=== PATIENT | male | born 1965 | race Caucasian/White ===

== ENCOUNTER 2023-09-27 12:30 | Emergency (ER) | payer MEDICARE ==
[~2023-09-27] VITALS: Ht 167.6 cm; Wt 83.9 kg
[2023-09-27] MEDS ORDERED: Albuterol 2.5 MG/3 ML VIAL INH ONE (13:00)
[2023-09-27 13:02] LABS: BASOPHILS ABSOLUTE AUTO 0.08 K/mm3 (0.00-0.23); BASOPHILS PERCENT AUTO 1 % (0-2); EOSINOPHILS ABSOLUTE AUTO 0.41 K/mm3 (0.00-0.68); EOSINOPHILS PERCENT AUTO 4 % (0-6); Hematocrit 39.1 % (37.0-53.0); Hemoglobin 13.1 g/dL (13.5-17.5); IMMATURE GRAN ABSOLUTE AUTO 0.03 K/mm3 (0.00-0.10); IMMATURE GRAN PERCENT AUTO 0 % (0-1); LYMPHOCYTES ABSOLUTE AUTO 2.65 K/mm3 (0.84-5.20); LYMPHOCYTES PERCENT AUTO 25 % (21-46); MONOCYTES ABSOLUTE AUTO 0.66 K/mm3 (0.16-1.47); MONOCYTES PERCENT AUTO 6 % (4-13); Mean Corpuscular HGB 29.1 pg (26.0-34.0); Mean Corpuscular HGB Conc 33.5 g/dL (31.5-36.5); Mean Corpuscular Volume 87 fL (80-100); Mean Platelet Volume 9.2 fL (9.1-12.4); NEUTROPHILS ABSOLUTE AUTO 6.66 K/mm3 (1.96-9.15); NEUTROPHILS PERCENT AUTO 63 % (41-73); Platelet Count 317 K/mm3 (150-400); RDW Coefficient Variation 13.6 % (11.7-14.2); RDW Standard Deviation 43.5 fL (35.1-46.3); White Blood Cell Count 10.49 K/mm3 (4.00-11.30)
[2023-09-27 13:24] LABS: Albumin, Blood 3.7 g/dL (3.4-5.0); Bilirubin, Total 0.9 mg/dL (0.1-1.0); Bun/Creatinine Ratio 12.4 (12.0-20.0); Calcium, Blood 8.9 mg/dL (8.5-10.1); Creatinine, Blood 1.21 mg/dL (0.60-1.20); Globulin, Blood 3.8 g/dL (2.2-4.0); Potassium, Blood 4.2 mmol/L (3.5-5.5); Total Protein, Blood 7.5 g/dL (6.4-8.2)
[2023-09-27] MEDS ORDERED: Furosemide 10 MG / ML 2ML Vial IV ONE (15:10)
[2023-09-27 15:30] VITALS: BP 148/119
[2023-09-27 15:43] LABS: Source, Urine Clean Catch
[2023-09-27 15:47] LABS: Appearance, Urine Clear (Clear); Bilirubin, Urine Neg (Neg); Blood, Urine Neg (Neg); Color, Urine Yellow (P-Yellow); Glucose Qualitative, Urine Neg (Neg); Ketones, Urine Neg (Neg); Leukocyte Esterase, Urine Neg (Neg); Nitrite, Urine Neg (Neg); Protein, Urine Neg (Neg); Urobilinogen, Urine NORM (Normal)
[2023-09-27 16:02] LABS: U Amphetamine Screen DETECTED
[2023-09-27 16:03] LABS: U Barbituate Screen Not Detected; U Benzodiazapine Screen Not Detected; U Buprenorphine Screen Not Detected; U Cannabinoids Screen Not Detected; U Cocaine Screen Not Detected; U Methadone Screen Not Detected; U Methamphetamine Screen DETECTED; U Opiates Screen Not Detected; U Oxycodone Screen Not Detected; U Phencyclidine Screen Not Detected
== END 2023-09-27 16:30 | disposition left against medical advice (07) ==
LOC: ER 12:30
PROVIDERS: Emergency Medicine
DX: I11.0 Hypertensive heart disease with heart failure (principal); I50.9 Heart failure, unspecified; Z53.29 Procedure and treatment not carried out because of patient's decision for other reasons; Z87.891 Personal history of nicotine dependence
CPT/HCPCS: 71045; 80053; 81003; 83880; 84484; 85025; 93005; 93010; 94640; 94664; 96374; 99285-25; J1940

== ENCOUNTER 2024-12-18 03:02 | Inpatient (IN) | payer MEDICARE ==
[~2024-12-18] VITALS: Ht 165.1 cm; Wt 79.4 kg
[2024-12-18] VITALS (23 sets, daily range): BP systolic 72–156; BP diastolic 52–138
[~2024-12-18 03:02] MED LIST: ALDACTONE25 MG PO; ASPI81CH PO; ATOR40TA PO; CLOPIDOGREL75 MG PO; DULERA 100 MCG/13 GM INH; FURO40 PO; LOSA25 PO; MELATONIN10 M1 PO; METO25 PO; MIRALAX17 GM PO
[2024-12-18] MEDS ORDERED: Albuterol 2.5 MG/3 ML VIAL ONE (03:08)
[2024-12-18] MEDS ORDERED: MethylPREDNISolone Sod Succ 125 MG Vial ONE (03:10)
[2024-12-18] MEDS ORDERED: Magnesium Sulf 2 GM/Water 50ML 50 ML IV ONE (03:15)
[2024-12-18] MEDS ORDERED: Albuterol 2.5 MG/3 ML VIAL INH SCH (03:15)
[2024-12-18] MEDS ORDERED: LORazepam 2 MG/ML 1ML Injection IV ONE ×2 (03:20→04:00)
[2024-12-18 03:25] LABS: BASOPHILS ABSOLUTE AUTO 0.13 K/mm3 (0.00-0.23); BASOPHILS PERCENT AUTO 1 % (0-2); EOSINOPHILS PERCENT AUTO 3 % (0-6); Hematocrit 48.1 % (37.0-53.0); Hemoglobin 16.1 g/dL (13.5-17.5); IMMATURE GRAN ABSOLUTE AUTO 0.07 K/mm3 (0.00-0.10); IMMATURE GRAN PERCENT AUTO 0 % (0-1); LYMPHOCYTES ABSOLUTE AUTO 4.23 K/mm3 (0.84-5.20); LYMPHOCYTES PERCENT AUTO 24 % (21-46); MONOCYTES PERCENT AUTO 7 % (4-13); Mean Corpuscular HGB 29.5 pg (26.0-34.0); Mean Corpuscular HGB Conc 33.5 g/dL (31.5-36.5); Mean Corpuscular Volume 88 fL (80-100); Mean Platelet Volume 8.9 fL (9.1-12.4); NEUTROPHILS ABSOLUTE AUTO 11.64 K/mm3 (1.96-9.15); NEUTROPHILS PERCENT AUTO 65 % (41-73); Platelet Count 424 K/mm3 (150-400); RDW Coefficient Variation 13.1 % (11.7-14.2); RDW Standard Deviation 42.2 fL (35.1-46.3); Red Blood Cell Count 5.46 M/mm3 (4.30-5.90); White Blood Cell Count 17.87 K/mm3 (4.00-11.30)
[2024-12-18 03:26] LABS: Base Excess Venous -3.5 mmol/L; Bicarbonate Venous 21.2 mmol/L (24.0-30.0); PCO2 Venous 46.4 mmHg (38-42)
[2024-12-18 03:41] LABS: D-Dimer, Quantitative 1.36 mg/L FEU (0.00-0.52); International Normalized Ratio 1.02; Prothrombin Time Results 10.9 Sec (9.7-11.5)
[2024-12-18 04:00] LABS: Albumin, Blood 3.9 g/dL (3.4-5.0); Albumin/Globulin Ratio 0.9 (0.8-1.8); Bilirubin, Total 0.6 mg/dL (0.1-1.0); Bun/Creatinine Ratio 14.5 (12.0-20.0); Calcium, Blood 8.8 mg/dL (8.5-10.1); Creatinine, Blood 1.59 mg/dL (0.60-1.20); Globulin, Blood 4.3 g/dL (2.2-4.0); Magnesium, Blood 2.1 mg/dL (1.6-2.4); Phosphorus, Blood 5.1 mg/dL (2.5-4.9); Thyroid Stimulating Hormone 1.67 uIU/mL (0.360-4.800); Total Protein, Blood 8.2 g/dL (6.4-8.2)
[2024-12-18] MEDS ORDERED: dexmedeTOMIDine 100 ML IV SCH (04:00)
[2024-12-18] MEDS ORDERED: Morphine Sulfate 10 MG/ML 1MLSYR IV ONE (04:15)
[2024-12-18] MEDS ORDERED: Ketamine HCl 100 MG / ML 5ML Vial IV ONE (04:20)
[2024-12-18 04:50] LABS: Influenza A, PCR NEGATIVE (NEGATIVE); Influenza B, PCR NEGATIVE (NEGATIVE); Resp Syncytial Virus, PCR NEGATIVE (NEGATIVE); SARS-Cov-2 (COVID-19) PCR, MMC NEGATIVE (NEGATIVE)
[2024-12-18] MEDS ORDERED: Midazolam HCL 50 MG in NS 40 ML IV PRN (05:20)
[2024-12-18] MEDS ORDERED: Midazolam HCl 1MG / ML 2ML Vial IV SCH (05:20)
[2024-12-18] MEDS ORDERED: Acetaminophen 325 MG TABLET PO PRN (05:20)
[2024-12-18] MEDS ORDERED: Acetaminophen 650 MG Supp PR PRN (05:20)
[2024-12-18] MEDS ORDERED: Dose Adjust by Pharmacy XX STA ×2 (05:28→17:02)
[2024-12-18 05:30] LABS: U Amphetamine Screen DETECTED; U Barbituate Screen Not Detected; U Benzodiazapine Screen Not Detected; U Buprenorphine Screen Not Detected; U Cannabinoids Screen Not Detected; U Cocaine Screen Not Detected; U Methadone Screen Not Detected; U Methamphetamine Screen DETECTED; U Opiates Screen Not Detected; U Oxycodone Screen Not Detected; U Phencyclidine Screen Not Detected
[2024-12-18] MEDS ORDERED: Heparin Sodium 5000 Units/ML 1ML MDV IV ONE (05:30)
[2024-12-18] MEDS ORDERED: Heparin Sodium,Porcine/0.5 NS 500 ML IV SCH (05:35)
[2024-12-18] MEDS ORDERED: Ipratropium/Albuterol SulF 2.5-0.5MG/3 ML Amp ONE (05:37)
[2024-12-18] MEDS ORDERED: propofoL 100 ML IV ONE (05:52)
[2024-12-18] MEDS ORDERED: Furosemide 10 MG / ML 2ML Vial IV SCH (06:00)
[2024-12-18] MEDS ORDERED: Pantoprazole Sodium 40 MG Injection IV SCH (06:00)
[2024-12-18] MEDS ORDERED: propofoL 100 ML IV SCH (06:10)
[2024-12-18 06:24] LABS: Base Excess Venous -5.7 mmol/L; Bicarbonate Venous 18.6 mmol/L (24.0-30.0); PCO2 Venous 57.8 mmHg (38-42)
[2024-12-18] MEDS ORDERED: Ticagrelor 90 MG TABLET PT ONE (06:40)
[2024-12-18] MEDS ORDERED: Aspirin 325 MG Tab PT ONE (06:40)
[2024-12-18] MEDS ORDERED: NiCARdipine HCL 1,000 MCG/5 ML SYR ONE (06:44)
[2024-12-18] MEDS ORDERED: Phenylephrine HCl 100 MCG/ML-NS 10MLSYR (1MG/10ML) ONE (06:46)
[2024-12-18] MEDS ORDERED: NS 1,000 ML IV ONE ×2 (06:46→10:24)
--- NOTE | 2024-12-18 06:46 | NUR ---
ARRIVAL TO ICU: PT ARRIVED TO ICU BED 6 VIA GURNEY FROM ER. PT INTUBATED UPON ARRIVAL WITH PRECEDEX INFUSING. PT VISIBLY AGGITATED, SWEATING PROFUSELY, TEMP 101.4. PRECEDEX STOPPED PER DR. ZHONG, PROPOFOL INITIATED AT 30 MCG/KG/MIN FOR VENT COMPLIANCE AND COMFORT. PT IN SINUS TACH, EKG OBTAINED AND GIVEN TO DR. ZHONG. SBP 120-140'S. HR 100-120. VENT SETTINGS AC/PC PEEP 12/ FIO2 100%. SPO2 99-100%. LUNGS DIMINISHED T/O. PT MOTTLED FROM UPPER BACK TO LOWER BACK, BILATERAL KNEES AND BILATERAL FEET. TEMP ROBLERO PATENT AND DRAINING TO GRAVITY. OG TUBE PATENT AND DRAINING TO LIS. ET TUBE 7.5, 25 AT LIP. PT AWAITING TRANSFER TO PIN BALL MACHINE MECHANIC. VERSED STARTED AT 2 MG/HR. HEPARIN AT 15 UNITS/KG/HR. PIVS TO RH AND LAC BOTH PATENT AND INFUSING. BED LOCKED.
[2024-12-18] MEDS ORDERED: Atropine Sulfate 0.1 MG/ML 10ML SYR ONE (06:47)
[2024-12-18] MEDS ORDERED: Acetaminophen 500 MG Tab PT ONE (06:50)
[2024-12-18] MEDS ORDERED: Heparin Sodium 1000 Units/ML 10ML MDV ONE ×4 (06:55→10:24)
[2024-12-18] MEDS ORDERED: Midazolam HCl 1MG / ML 2ML Vial ONE ×2 (07:25→08:47)
[2024-12-18] MEDS ORDERED: FentaNYL Citrate 50 MCG/ML 2 ML Injection ONE ×2 (07:38→08:47)
[2024-12-18 07:54] LABS: PCO2 Arterial 41.6 mmHg (35-45); PO2 Arterial 176 mmHg (80-100); pH Blood Arterial 7.33 (7.35-7.45)
[2024-12-18] MEDS ORDERED: propofoL 0 ML IV ONE (08:09)
[2024-12-18] MEDS ORDERED: NS 500 ML IV ONE ×4 (08:35→09:46)
[2024-12-18] MEDS ORDERED: Rocuronium Bromide 10 MG/ML 5ML Injection IV ONE (08:45)
[2024-12-18] MEDS ORDERED: Aspirin 81 MG Chew PO SCH (09:00)
[2024-12-18] MEDS ORDERED: Docusate Sodium 100 MG Cap PO SCH (09:00)
[2024-12-18] MEDS ORDERED: Atorvastatin 40 MG Tab PO SCH ×2 (09:00→21:00)
[2024-12-18] MEDS ORDERED: NS 500 ML IV SCH (09:40)
[2024-12-18] MEDS ORDERED: Dextrose 5% 500 ML IV SCH (09:45)
[2024-12-18] MEDS ORDERED: propofoL 50 ML IV ONE (09:46)
[2024-12-18] MEDS ORDERED: fentaNYL citrate 1,000 MCG in NS 80 ML IV SCH (10:15)
[2024-12-18] MEDS ORDERED: FentaNYL Citrate 50 MCG/ML 2 ML Injection IV PRN ×2 (10:20→11:40)
[2024-12-18] MEDS ORDERED: Verapamil HCL 2.5 MG/ML 2ML Injection ONE (10:23)
[2024-12-18] MEDS ORDERED: NS 250 ML IV ONE (10:24)
[2024-12-18] MEDS ORDERED: Nitroglycerin 2 MG/20 ML BTL ONE (10:24)
[2024-12-18] MEDS ORDERED: Albuterol 2.5 MG/3 ML VIAL INH PRN (10:25)
[2024-12-18] MEDS ORDERED: Empagliflozin 10 MG TAB PO SCH (10:30)
[2024-12-18] MEDS ORDERED: Cetylpyridinium Chloride 1 EA MISC MT SCH (11:40)
[2024-12-18] MEDS ORDERED: Hydrogen Peroxide 1.5 % Solution MT SCH (12:00)
[2024-12-18 12:28] LABS: LDL/HDL RATIO 2.4; Very Low Density Lipoprot Chol 18 mg/dL (6-32)
[2024-12-18 13:07] LABS: CHOL/HDL RATIO 3.8; Cholesterol 194 mg/dL (50-200); HDL Cholesterol 51 mg/dL (>39); Low Density Lipoprotein Chol 125 mg/dL (0-110); Triglycerides 92 mg/dL (30-160)
[2024-12-18 13:34] LABS: PCO2 Arterial 37.8 mmHg (35-45); PO2 Arterial 103 mmHg (80-100); pH Blood Arterial 7.34 (7.35-7.45)
--- NOTE | 2024-12-18 14:28 | NUR ---
PT ARRIVED LAST NIGHT VIA EMS WITH NO CONTACT INFORMATION. HE WAS INTUBATED AND SEDATED LAST NIGHT. NURSE INTERN ABLE TO LOCATE SEVERAL PHONE NUMBERS, AND THIS RN WAS ABLE TO ESTABLISH WITH FAMILY THAT THE PATIENT'S MOM TYLER WOULD BE HIS PRIMARY DECISION-MAKER IF NEED BE. PT DOES HAVE 2 CHILDREN, A SON AND A DAUGHTER. SON ARNULFO STATES HE WOULD NOT BE ABLE TO MAKE DECISIONS AND DEFERRED TO HIS GRANDMA TYLER. ACCORDING TO FAMILY, PT IS ESTRANGED FROM HIS DAUGHTER. TYLER'S # [phone]
--- NOTE | 2024-12-18 18:05 | NUR ---
SHIFT SUMMARY PT INTUBATED AND SEDATED WITH FENTANYL GTT @ 25MCG/HR AND PROPOFOL @ 45MCG/KG/HR. RASS OF -4. HEPARIN INFUSING @ PRESCRIBED RATE. VENT SETTINGS AC/VC-22/400/50%/12 c SATS >95%. IABP TO R FEMORAL SITE, SMALL AMNT OF OOZING BLOOD FROM SITE, NO HEMATOMA TO SURROUNDING TISSUE. SWAN VIA R FEMORAL SITE, NOT MEASURING WEDGE PRESSURES PER CARDIOLOGY. Q4HR HEMODYNAMIC CALCULATIONS. PT NO LONGER ON LEVOPHED, OFF @ 1555, IA MAP >65. INITIALLY UNABLE TO DOPPLER PEDAL PULSES, FEET COOL TO TOUCH, CAP REFILL >3 SECONDS. PULSES HAVE IMPROVED TO LE THIS AFTERNOON, DOPPLER PULSES PRESENT TO BLE. OGT TO LIS c BROWN LIQUID OUT. TEMP PROBE ROBLERO CATH DRAINING LIGHT YELLOW URINE, UO >30CC/HR.
[2024-12-18 19:22] LABS: Bun/Creatinine Ratio 13.9 (12.0-20.0); Calcium, Blood 8.6 mg/dL (8.5-10.1); Creatinine, Blood 2.44 mg/dL (0.60-1.20)
--- NOTE | 2024-12-18 20:21 | NUR ---
ASSUMPTION OF CARE: ASSUMED CARE OF PT AT 1900 FROM GILBERT ARRIETA. PT INTUBATED AND SEDATED ON PROPOFOL AT 30 MCG/KG/MIN WITH FENTANYL AT 25 MCG/HR AN ADJUNCT. RASS -5 PER DAYSHIFT REPORT. PT ON BALLOON PUMP AND SWAN TO RIGHT FEMORAL. UNABLE TO COMPLETE FULL NEURO ASSESSMENT R/T SEDATION. HEPARIN GTT AT 10 UNITS/KG/HR. PUPILS EQUAL AND REACTIVE TO LIGHT. PULSES PALPABLE IN BILATERAL RADIALS WITH DOPPLER PULSES PRESENT IN BILATERAL PEDALS. VENT SETTINGS AC/VC + 22/400/12/50%, SPO2 96-97%. LUNGS CLEAR/DIM. WELLFIELD TECHNICIAN IN PLACE, SR WITH HR 80'S. MAP >65 ACCORDING TO ARTLINE. OGT PATENT. TEMP ROBLERO PATENT AND DRAINING TO GRAVITY, YELLOW URINE. BT PRESENT. PT AFEBRILE. BED LOW AND LOCKED.
[2024-12-18 20:50] LABS: Source, Urine Foley catheter
[2024-12-18 20:59] LABS: Bilirubin, Urine Neg (Neg); Blood, Urine 2+ (Neg); Glucose Qualitative, Urine Neg (Neg); Ketones, Urine Neg (Neg); Leukocyte Esterase, Urine Neg (Neg); Nitrite, Urine Neg (Neg); Protein, Urine 3+ (Neg); Specific Gravity, Urine 1.025 (1.003-1.022); Urobilinogen, Urine NORM (Normal)
[2024-12-18] MEDS ORDERED: Ticagrelor 90 MG TABLET PO SCH (21:00)
[2024-12-18 21:08] LABS: Appearance, Urine Clear (Clear); Color, Urine Yellow (P-Yellow)
[2024-12-18 21:09] LABS: Amorphous Light (0-Heavy); Bacteria Rare /hpf; Calcium Oxalate Crystals Few /hpf; Hyaline Casts 0-2 /lpf (0-2); Mucus Light (0-Heavy); Squamous Epithelial Cells Rare /hpf (Few); White Blood Cells, Urine 0-2 /hpf (0-5)
[2024-12-18 21:10] LABS: Renal Epithelial Rare /hpf (0-Rare)
[2024-12-19] VITALS (38 sets, daily range): BP systolic 100–177; BP diastolic 65–109
[2024-12-19] MEDS ORDERED: Dose Adjust by Pharmacy XX STA ×2 (00:57→07:40)
[2024-12-19 04:32] LABS: PCO2 Arterial 39.9 mmHg (35-45); PO2 Arterial 88.7 mmHg (80-100); pH Blood Arterial 7.39 (7.35-7.45)
[2024-12-19 04:35] LABS: BASOPHILS ABSOLUTE AUTO 0.04 K/mm3 (0.00-0.23); BASOPHILS PERCENT AUTO 0 % (0-2); EOSINOPHILS ABSOLUTE AUTO 0.01 K/mm3 (0.00-0.68); EOSINOPHILS PERCENT AUTO 0 % (0-6); Hematocrit 42.9 % (37.0-53.0); Hemoglobin 14.4 g/dL (13.5-17.5); IMMATURE GRAN ABSOLUTE AUTO 0.12 K/mm3 (0.00-0.10); IMMATURE GRAN PERCENT AUTO 1 % (0-1); LYMPHOCYTES ABSOLUTE AUTO 2.45 K/mm3 (0.84-5.20); LYMPHOCYTES PERCENT AUTO 11 % (21-46); MONOCYTES ABSOLUTE AUTO 1.63 K/mm3 (0.16-1.47); MONOCYTES PERCENT AUTO 7 % (4-13); Mean Corpuscular HGB 29.8 pg (26.0-34.0); Mean Corpuscular HGB Conc 33.6 g/dL (31.5-36.5); Mean Corpuscular Volume 89 fL (80-100); Mean Platelet Volume 9.6 fL (9.1-12.4); NEUTROPHILS ABSOLUTE AUTO 19.17 K/mm3 (1.96-9.15); NEUTROPHILS PERCENT AUTO 82 % (41-73); Platelet Count 397 K/mm3 (150-400); RDW Coefficient Variation 13.2 % (11.7-14.2); RDW Standard Deviation 43.3 fL (35.1-46.3); Red Blood Cell Count 4.84 M/mm3 (4.30-5.90); White Blood Cell Count 23.42 K/mm3 (4.00-11.30)
[2024-12-19 04:59] LABS: Albumin, Blood 3.2 g/dL (3.4-5.0); Albumin/Globulin Ratio 0.9 (0.8-1.8); Bilirubin, Total 0.6 mg/dL (0.1-1.0); Bun/Creatinine Ratio 16.9 (12.0-20.0); Calcium, Blood 8.6 mg/dL (8.5-10.1); Creatinine, Blood 2.55 mg/dL (0.60-1.20); Globulin, Blood 3.7 g/dL (2.2-4.0); Magnesium, Blood 2.6 mg/dL (1.6-2.4); Potassium, Blood 4.9 mmol/L (3.5-5.5); Total Protein, Blood 6.9 g/dL (6.4-8.2)
--- NOTE | 2024-12-19 06:13 | NUR ---
SHIFT SUMMARY: NO ACUTE CHANGES OVERNIGHT. PT CONTINUES TO REMAIN INTUBATED AND SEDATED. PROPOFOL DECREASED TO 35 MCG/KG/MIN THIS SHIFT WITH FENTANYL AN ADJUNCT AT 25 MCG/HR. PT HAS MINIMAL PAIN RESPONSE AT TIMES, GRIMACES OCCASIONALLY WITH SUCTIONING. PUPILS EQUAL AND REACTIVE. PT DOUBLE STACKING AT TIMES, PRN FENTANYL GIVEN TWICE THIS SHIFT FOR COMFORT. UNABLE TO DO FULL NEURO ASSESSMENT R/T SEDATION. PT CONTINUES ON BALLOON PUMP WITH PA CATHETER IN RIGHT GROIN. RIGHT FOOT COOL TO TOUCH BUT IMPROVING SINCE START OF SHIFT. PULSES HEARD WITH DOPPLER ON BILATERAL FEET. LEVOPHED BETWEEN 1-2 MCG/MIN FOR A FEW HOURS THIS SHIFT, SEE FLOWSHEET. CURRENTLY ON SB FOR MAP >65. HR 80'S IN SR WITH PVC'S. VENT SETTINGS UNCHANGED THIS SHIFT. SPO2 MAINTAINING >94%. LUNGS REMAIN CLEAR/DIM. PA CATH SITE TO RIGHT GROIN HAS MINIMAL OOZING NOTED FROM DAYSHIFT, NO NEW BLOOD THIS SHIFT. HEPARIN INCREASED TO 12 UNITS/KG/HR PER PHARMACY. PIV TO RH AND LAC CONTINUE TO BE PATENT. TEMP ROBLERO DRAINING TO GRAVITY YELLOW URINE. PT AFEBRILE THIS SHIFT. EKG OBTAINED AND IN CHART THIS AM. OGT SET TO LIS. BED LOW AND LOCKED.
--- NOTE | 2024-12-19 07:00 | NUR ---
ASSUMPTION OF CARE BEDSIDE REPORT RECEIVED FROM MARITZA ARRIETA. PT RECEIVING HEPARIN 12UNITS/KG/HR, PROPOFOL 35MCG/KG/MIN AND FENTANYL 25MCG/HR. PT IS INTUBATED WITH VENT SETTINGS AC/VC 22/400/12/50%. RASS -4. IABP AND SWAN TO R FEM. DRESSING HAS SOME DRIED OOZING THAT PREVIOUS RN STS HAS BEEN UNCHANGED THROUGHOUT THE SHIFT. HEMODYNAMICS COMPLETED TOGETHER DURING SHIFT REPORT. IAP ON 1:1 WITH MAP >65. SINUS ON MONITOR WITH OCCASIONAL PVCS WITH RATE IN 80S. OGT TO LIS. ABDOMEN FIRM, BOWEL TONES ACTIVE. TEMP ROBLERO PATENT AND DRAINING TO GRAVITY.
--- NOTE | 2024-12-19 08:00 | NUR ---
UPDATE CARDIOLOGY ROUNDED AND CHANGED IABP TO 1:2. PT TOLERATING. MAP >65. TENTATIVE PLAN FOR IABP REMOVAL TODAY. HEPARIN TURNED OFF, PHARMACY NOTIFIED.
[2024-12-19] MEDS ORDERED: Aspirin 81 MG Chew PO SCH (09:00)
[2024-12-19] MEDS ORDERED: Furosemide 10 MG/ML 4ML Vial IV SCH (09:00)
[2024-12-19] MEDS ORDERED: Docusate Sodium Liquid 100 MG UDC PT PRN (11:25)
[2024-12-19] MEDS ORDERED: Bisacodyl 10 MG Supp PR PRN (11:25)
[2024-12-19] MEDS ORDERED: Magnesium Hydroxide Conc 10 ML UDC PT PRN (11:25)
--- NOTE | 2024-12-19 13:40 | NUR ---
UPDATE PT TRANSITIONED TO 1:3 AROUND NOON. HR REMAINS IN 80S. BP MORE LABILE WITH MAP VARYING BETWEEN MID 50S-80S. CARDIOLOGY NOTIFIED AND PLAN TO REMOVE IABP AND SWAN THIS AFTERNOON. ORDER RECEIVED TO START LEVOPHED PERIPHERALLY IF NIBP MAP MAINTAINS <60. PT'S COUSIN MARITZA AT BEDSIDE AND REPORTS PT'S MOTHER JUST LANDED IN [place] AND IS IN TRANSIT TO HOSPITAL.
--- NOTE | 2024-12-19 15:18 | NUR ---
UPDATE/REMOVAL OF IABP AND SWAN FISH CLEANER STAFF REMOVED IABP AND SWAN, PERFORMED MANUAL PRESSURE HELD, SITE CARE AND DRESSING. NO ACTIVE BLEEDING, SURROUNDING TISSUE SOFT/NONTENDER. PT TOLERATED WELL. HR 90-100S. MAP >65. DOPPLER PEDAL PULSES PRESENT. DR BOUCHER ROUNDED AFTER REMOVAL. PLAN TO KEEP PRESSURE DRESSING IN PLACE UNTIL TOMORROW.
--- NOTE | 2024-12-19 17:50 | NUR ---
SHIFT SUMMARY PT IS RECEIVING PROPOFOL 45MCG/KG/MIN AND FENTANYL 25MCG/HR. HE REMAINS INTUBATED WITH VENT SETTINGS AC/VC+ 22/400/10/50%. RASS -4. IABP AND SWAN REMOVED AROUND 1400 BY POLICE OFFICER STAFF. PRESSURE DRESSING REMAINS C/D/I. SURROUNDING TISSUE SOFT. RLE IS COOL TO TOUCH WITH DISCOLORED TOES. DOPPLER PULSES PRESSENT ON BLE. STRONG RADIAL PULSES. SINUS WITH PVCS ON MONITOR WITH RATE IN 90S-100S. MAP >65. PT POSITIONED REVERSE TRENDELENBERG WITH R LEG STRAIGHT. OGT TO LIS. TUBE FEEDING HAS NOT BEEN STARTED TO DUE SUPINE POSITIONING POST IABP REMOVAL. TEMP ROBLERO PATENT AND DRAINING TO GRAVITY. NEPHROLOGY CONSULTED AND ROUNDED THIS EVENING. PT SEEN BY DENTAL HYGEINIST AND HAS PURULENT ORAL DISCHARGE. PT'S CORE TEMP INCREASED WITH TMAX 100.4. CRITICAL CARE NURSE SPECIALIST NOTIFIED AND ORDER RECEIVED TO BEGIN ANTIBIOTICS. HEPARIN GTT OFF AT 0800 AND PLAN TO START LOVENOX IN AM. NO ORDER FOR SCDS. MULTIPLE FAMILY MEMBERS AT BEDSIDE AND UPDATED.
[2024-12-19] MEDS ORDERED: Amoxicillin 250 MG/5 ML UDC 5ML BTL PT SCH (19:00)
[2024-12-20] VITALS (72 sets, daily range): BP systolic 62–136; BP diastolic 45–101
[2024-12-20 03:25] LABS: BASOPHILS ABSOLUTE AUTO 0.06 K/mm3 (0.00-0.23); BASOPHILS PERCENT AUTO 0 % (0-2); EOSINOPHILS ABSOLUTE AUTO 0.02 K/mm3 (0.00-0.68); EOSINOPHILS PERCENT AUTO 0 % (0-6); Hematocrit 42.6 % (37.0-53.0); Hemoglobin 13.8 g/dL (13.5-17.5); IMMATURE GRAN ABSOLUTE AUTO 0.06 K/mm3 (0.00-0.10); IMMATURE GRAN PERCENT AUTO 0 % (0-1); LYMPHOCYTES ABSOLUTE AUTO 2.56 K/mm3 (0.84-5.20); LYMPHOCYTES PERCENT AUTO 14 % (21-46); MONOCYTES ABSOLUTE AUTO 2.82 K/mm3 (0.16-1.47); MONOCYTES PERCENT AUTO 15 % (4-13); Mean Corpuscular HGB 29.1 pg (26.0-34.0); Mean Corpuscular HGB Conc 32.4 g/dL (31.5-36.5); Mean Corpuscular Volume 90 fL (80-100); Mean Platelet Volume 9.5 fL (9.1-12.4); NEUTROPHILS ABSOLUTE AUTO 13.06 K/mm3 (1.96-9.15); NEUTROPHILS PERCENT AUTO 70 % (41-73); Platelet Count 298 K/mm3 (150-400); RDW Coefficient Variation 13.4 % (11.7-14.2); RDW Standard Deviation 44.6 fL (35.1-46.3); Red Blood Cell Count 4.74 M/mm3 (4.30-5.90); White Blood Cell Count 18.58 K/mm3 (4.00-11.30)
[2024-12-20 03:58] LABS: Bun/Creatinine Ratio 22.3 (12.0-20.0); Calcium, Blood 8.6 mg/dL (8.5-10.1); Creatinine, Blood 2.29 mg/dL (0.60-1.20); Magnesium, Blood 2.6 mg/dL (1.6-2.4); Phosphorus, Blood 4.6 mg/dL (2.5-4.9); Potassium, Blood 3.9 mmol/L (3.5-5.5)
[2024-12-20] MEDS ORDERED: CALCIUM GLUC IN NACL, ISO-OSM 50 ML IV ONE (05:10)
--- NOTE | 2024-12-20 05:36 | NUR ---
SHIFT SUMMARY PT INTUBATED/SEDATED. NOT FOLLOWING COMMANDS, RESPONSIVE TO STIMULI. PROPOFOL INCREASED TO 55 MCG/KG R/T NOT TOLERATING VENT, REACHING FOR TUBE, PULLING ON RESTRAINTS. PT APPEARS COMFORTABLE NOW. SOME FENTANYL 50MCG PUSHES GIVEN THIS SHIFT ALSO. ON VENT ACVC 22/400/10/50%, PT HAS HAD LOTS OF SECRETIONS REQUIRING IN-LINE SUCTION WELL ORAL SUCTION. SATS > 95%. ON METAL STAMPER, HR 90-100'S SR. ROBLERO DRAINING TO GRAVITY. IABP SITE DRESSING C/D/I, NO HEMATOMA NOTED, SOFT ON PALPATION. CHG BATH GIVEN. NO OTHER ACUTE EVENTS THIS SHIFT.
--- NOTE | 2024-12-20 07:00 | NUR ---
ASSUMPTION OF CARE BEDSIDE REPORT RECEIVED FROM QI ARRIETA. PT IS RECEIVING PROPOFOL 45MCG/KG/MIN AND FENTANYL 25MCG/HR. HE REMAINS INTUBATED WITH VENT SETTINGS AC/VC+ 22/400/10/50%. PT BECOMES AGITATED WITH CARE, RASS -4 AT REST. SINUS WITH PVCS ON MONITOR. BP STABLE WITH MAP >65. R FEM DRESSING C/D/I. SURROUNDING TISSUE SOFT WITHOUT DISCOLORATION. RLE COLORING IMPROVED SINCE YESTERDAY. LLE HAS SOME MOTTLING AND COOL TO TOUCH. DOPPLER PULSES PRESENT BILATERALLY. CORE TEMP 100.8, COOL CLOTH ON FOREHEAD AND FAN IN PLACE. ROBLERO PATENT AND DRAINING TO GRAVITY. FAMILY AT BEDSIDE AND UPDATED.
[2024-12-20] MEDS ORDERED: Enoxaparin 40 MG/0.4 ML SYR SC SCH (09:00)
[2024-12-20] MEDS ORDERED: LORazepam 2 MG/ML 1ML Injection IV PRN (09:40)
[2024-12-20] MEDS ORDERED: dexmedeTOMIDine 100 ML IV SCH (09:45)
[2024-12-20] MEDS ORDERED: Ipratropium/Albuterol SulF 2.5-0.5MG/3 ML Amp INH SCH (10:55)
--- NOTE | 2024-12-20 11:46 | NUR ---
LATE ENTRY BALLOON PUMP REMOVAL 12/19/2024 1435 BALLOON PUMP AND 8 FR ARTERIAL SHEATH REMOVED BOTH INTACT; MANUAL PRESSURE HELD X 30 MIN, NO SWELLING/HEMATOMA POST REMOVAL; POSITIVE DOPPLER SIGNAL R DP POST REMOVAL. TEGADERM AND PRESSURE DRESSING PLACED PER DR BOUCHER. SWAN AND 8 FR VENOUS SHEATH REMOVED, BOTH INTACT; MANUAL PRESSURE HELD X 10 MIN, NO SWELLING/HEMATOMA POST REMOVAL. TEGADERM DRSG PLACED.
[2024-12-20] MEDS ORDERED: Calcium Chloride 10% 1,000 MG in NS 50 ML IV ONE (14:40)
--- NOTE | 2024-12-20 15:40 | NUR ---
UPDATE ATTEMPTED SEDATION VACATION THIS AM. PT BEGINS COUGHING AND PULLING AGAINST RESTRAINTS. PT ATTEMPTS TO OPEN EYES TO VERBAL STIMULI BUT UNABLE TO FULLY OPEN AND MAKE EYE CONTACT. PT DOES NOT FOLLOW ANY COMMANDS OR RESPOND TO VERBAL REASSURANCE. TRANSITIONED TO SPONT AND TITRATED TO 7/5/50%. PRECEDEX ADDED AND PRN ATIVAN. PT CONTINUES TO COUGH, HAVE COPIOUS ORAL AND ETT SECRETIONS, AND BEGINS DESATURATING. PT TRANSITIONED BACK TO AC/VC+ 18/400/10/80% AND SEDATION TITRATED. PT'S BP DECREASING WITH MAP IN 50S. ORDER RECEIVED FOR LEVOPHED. CURRENTLY INFUSING AT 2MCG/MIN WITH MAP >60.
--- NOTE | 2024-12-20 17:43 | NUR ---
SHIFT SUMMARY PT RECEIVING PROPOFOL 20MCG/KG/MIN AND PRECEDEX 0.7MCG/KG/HR. HE REMAINS INTUBATED WITH VENT SETTINGS AC/VC+ 18/400/10/80%. PT BECOMES AGITATED DURING CARE AND WHEN COUGHING. HE HAS BEEN UNABLE TO FOLLOW COMMANDS THROUGHOUT THE SHIFT. TUBE FEEDING INFUSING VIA OGT. SINUS ON MONITOR WITH RATE IN 60S-80S. LEVOPHED STARTED DUE TO MAP REMAINING IN 50S. SENIOR ORACLE SOA DEVELOPER, ICING MACHINE OPERATOR AND CHILD AND YOUTH PROGRAM ASSISTANT NOTIFIED. PLAN TO HOLD 1800 DOSE OF LASIX AND UTILIZE LEVOPHED NEEDED TO MAINTAIN MAP >60. CURRENTLY LEVOPHED ON SB WITH MAP 67. TEMP ROBLERO PATENT AND DRAINING TO GRAVITY. PT HAD 1750ML URINE OUTPUT. TMAX 102.0, MEDICATED PER EMAR. FAN AND ICE PACKS IN PLACE. FAMILY AT BEDSIDE THROUGHOUT THE DAY AND UPDATED.
[2024-12-21] VITALS (78 sets, daily range): BP systolic 65–117; BP diastolic 42–103
[2024-12-21 03:43] LABS: Base Excess Venous 7.6 mmol/L; Bicarbonate Venous 29.5 mmol/L (24.0-30.0); PCO2 Venous 50.3 mmHg (38-42); pH Blood Venous 7.42 (7.34-7.37)
[2024-12-21 03:46] LABS: BASOPHILS ABSOLUTE AUTO 0.05 K/mm3 (0.00-0.23); BASOPHILS PERCENT AUTO 0 % (0-2); EOSINOPHILS ABSOLUTE AUTO 0.07 K/mm3 (0.00-0.68); EOSINOPHILS PERCENT AUTO 1 % (0-6); Hematocrit 37.4 % (37.0-53.0); Hemoglobin 12.3 g/dL (13.5-17.5); IMMATURE GRAN ABSOLUTE AUTO 0.03 K/mm3 (0.00-0.10); IMMATURE GRAN PERCENT AUTO 0 % (0-1); LYMPHOCYTES ABSOLUTE AUTO 1.92 K/mm3 (0.84-5.20); LYMPHOCYTES PERCENT AUTO 15 % (21-46); MONOCYTES ABSOLUTE AUTO 1.19 K/mm3 (0.16-1.47); MONOCYTES PERCENT AUTO 10 % (4-13); Mean Corpuscular HGB Conc 32.9 g/dL (31.5-36.5); Mean Corpuscular Volume 88 fL (80-100); Mean Platelet Volume 9.5 fL (9.1-12.4); NEUTROPHILS ABSOLUTE AUTO 9.26 K/mm3 (1.96-9.15); NEUTROPHILS PERCENT AUTO 74 % (41-73); Platelet Count 302 K/mm3 (150-400); RDW Standard Deviation 42.3 fL (35.1-46.3); Red Blood Cell Count 4.24 M/mm3 (4.30-5.90); White Blood Cell Count 12.52 K/mm3 (4.00-11.30)
[2024-12-21 04:57] LABS: Magnesium, Blood 2.8 mg/dL (1.6-2.4)
[2024-12-21 04:58] LABS: Albumin, Blood 2.9 g/dL (3.4-5.0); Bun/Creatinine Ratio 25.8 (12.0-20.0); Creatinine, Blood 2.17 mg/dL (0.60-1.20); Phosphorus, Blood 5.8 mg/dL (2.5-4.9); Potassium, Blood 3.7 mmol/L (3.5-5.5)
[2024-12-21 05:15] LABS: Albumin/Globulin Ratio 0.8 (0.8-1.8); Bilirubin, Total 0.4 mg/dL (0.1-1.0); Globulin, Blood 3.7 g/dL (2.2-4.0); Total Protein, Blood 6.6 g/dL (6.4-8.2)
--- NOTE | 2024-12-21 05:29 | NUR ---
SHIFT SUMMARY PT INTUBATED AND SEDATED. PROPOFOL AND PRECEDEX INFUSING. PT RESPONSIVE TO STIMULI. WILL GO FROM RASS OF -4 TO +2 W/ INTERVENTIONS LIKE TURNS, ORAL CARE, ETC. ATIVAN AND FENT PRN ON OCT. PT TOLERATED VENT MOST OF TIME THIS SHIFT, ACVC 18/400/10/70%. LS CLEAR AND DIM. HR 60'S, MAPS > 60 T/O SHIFT. LEVO ON SB. ROBLERO DRAINING YELLOW URINE. NO BM THIS SHIFT. TF RUNNING AT GOAL RATE OF 45ML/H. TEGADERM ON R GROIN C/D/I. NO ACUTE EVENTS.
--- NOTE | 2024-12-21 07:15 | NUR ---
FENTANYL WASTE 87 ML OF REMAINING FENTANYL GTT WASTED WITH AXEL HOFFMANN RN.
[2024-12-21] MEDS ORDERED: Spironolactone 12.5 MG TAB PO SCH (12:00)
[2024-12-21] MEDS ORDERED: Metoprolol Succinate 25 MG TABCR PO SCH (12:00)
[2024-12-21 12:11] LABS: Base Excess Venous 7.9 mmol/L; Bicarbonate Venous 29.8 mmol/L (24.0-30.0); PCO2 Venous 50.8 mmHg (38-42); pH Blood Venous 7.41 (7.34-7.37)
--- NOTE | 2024-12-21 18:12 | NUR ---
SHIFT SUMMARY NO ACUTE CHANGES THIS SHIFT. PT REMAINS INTUBATED AND SEDATED. PT WITH EPISODES OF AGITATION AND ASYNCHRONY WITH VENT THIS MORNING WITH DECREASED SEDATION. PT UNABLE TO FOLLOW COMMANDS OR TRACK WITH LESS SEDATION. PT CURRENTLY SEDATED WITH PROPOFOL AT 30 MCG/KG/MIN AND PRECEDEX AT 0.7 MCG/KG/HR. VENT SETTINGS IMPROVED TO AC/VC 18, TV 400, PEEP 5, FIO2 50%. PT CONTINUES WITH LARGE AMOUNT OF THICK, LEMA ORAL AND ETT SECRETIONS WITH SUCTION. COUGH AND GAG PRESENT. OGT IN PLACE WITH TF INFUSING AT GOAL RATE. PG TO REBECCA C/D/I. ROBLERO TEMP PROBE IN PLACE WITH YELLOW URINE OUTPUT NOTED. VITAL SIGNS STABLE. SBW RESTRAINTS REMAIN IN PLACE. PT WITH MANY FAMILY MEMBERS IN AND OUT THROUGHOUT THE SHIFT. WILL CONTINUE TO MONITOR AND REPORT OFF TO ONCOMING RN.
[2024-12-21] MEDS ORDERED: Cetylpyridinium Chloride 1 EA MISC MT SCH (20:00)
--- NOTE | 2024-12-21 21:00 | NUR ---
ASSUMPTION OF CARE CARE OF PT ASSUMED FOLLOWING BEDSIDE REPORT FROM DAY RN. PT INTUBATED AND SEDATED. RASS -3. PT APPEARS COMFORTABLE AND IS NO FIGHTING VENT OR COUGHING. VENT SETTING ACVC+ 18/400/50%/5.0 PRODUCING SAT OF 98% SINUS RHYTHM IN THE 60'S WITH SOFT TO STABLE BP- LEVO STILL ORDERED IF NEEDED. PRECEDEX INFUSING AT 0.7 AND PROPOFOL AT 30. PT OPENS EYES TO CERTAIN UNCOMFORTABLE STIMULI BUT OTHERWISE FAILS TO DEMONSTRATE PURPOSEFUL MOVEMENT (IT SHOULD BE NOTED THAT SEDATION WAS NOT STOPPED OR WEANED FOR THIS ASSESSMENT). TF THROUGH 0G AT 45 (GOAL); ROBLERO DRAINING YELLOW URINE TO GRAVITY. SCD'S ON. PT FAMILY IN ROOM UNTIL 1999.
[2024-12-21] MEDS ORDERED: Docusate Sodium Liquid 100 MG UDC PT SCH ×2 (21:05→21:09)
[2024-12-22] VITALS (88 sets, daily range): BP systolic 71–162; BP diastolic 49–122
[2024-12-22] MEDS ORDERED: Hydrogen Peroxide 1.5 % Solution MT SCH
[2024-12-22 03:45] LABS: BASOPHILS ABSOLUTE AUTO 0.06 K/mm3 (0.00-0.23); BASOPHILS PERCENT AUTO 1 % (0-2); EOSINOPHILS ABSOLUTE AUTO 0.28 K/mm3 (0.00-0.68); EOSINOPHILS PERCENT AUTO 2 % (0-6); Hematocrit 36.4 % (37.0-53.0); IMMATURE GRAN ABSOLUTE AUTO 0.05 K/mm3 (0.00-0.10); IMMATURE GRAN PERCENT AUTO 0 % (0-1); LYMPHOCYTES ABSOLUTE AUTO 1.53 K/mm3 (0.84-5.20); LYMPHOCYTES PERCENT AUTO 13 % (21-46); MONOCYTES ABSOLUTE AUTO 0.92 K/mm3 (0.16-1.47); MONOCYTES PERCENT AUTO 8 % (4-13); Mean Corpuscular HGB 29.3 pg (26.0-34.0); Mean Corpuscular Volume 89 fL (80-100); Mean Platelet Volume 9.6 fL (9.1-12.4); NEUTROPHILS ABSOLUTE AUTO 9.35 K/mm3 (1.96-9.15); NEUTROPHILS PERCENT AUTO 77 % (41-73); Platelet Count 285 K/mm3 (150-400); RDW Standard Deviation 42.5 fL (35.1-46.3); Red Blood Cell Count 4.09 M/mm3 (4.30-5.90); White Blood Cell Count 12.19 K/mm3 (4.00-11.30)
[2024-12-22 04:07] LABS: Albumin, Blood 2.8 g/dL (3.4-5.0); Albumin/Globulin Ratio 0.7 (0.8-1.8); Bilirubin, Total 0.4 mg/dL (0.1-1.0); Bun/Creatinine Ratio 33.2 (12.0-20.0); Calcium, Blood 8.6 mg/dL (8.5-10.1); Creatinine, Blood 1.84 mg/dL (0.60-1.20); Globulin, Blood 3.9 g/dL (2.2-4.0); Magnesium, Blood 2.8 mg/dL (1.6-2.4); Phosphorus, Blood 4.7 mg/dL (2.5-4.9); Potassium, Blood 3.4 mmol/L (3.5-5.5); Total Protein, Blood 6.7 g/dL (6.4-8.2)
[2024-12-22] MEDS ORDERED: Potassium Chl 20MEQ/Water100ML 100 ML IV STA (06:29)
--- NOTE | 2024-12-22 06:34 | NUR ---
SHIFT SUMMARY OVERALL, PT EXPERIENCED LITTLE CHANGE THROUGHOUT SHIFT, PLANNED. PT REMAINED SEDATED WITH PROPOFOL 30 AND PRECEDEX 0.7, WITH 6 COUGHING FITS. TMAX OF 100.4, MOST OF NIGHT 99.8. FENTANYL 50MCG X 3 ADMINISTERED. PT SECRETIONS STILL LEMA AND THICK IN ETT TUBE, WHICH IS 7.5 AND 25.0 CM AT LIPS. ORAL SECRETIONS SMALL TO MOD. VENT SETTINGS UNCHANGED DURING SHIFT: ACVC+ 18/400/50%/5.0 PRODUCING SATURATIONS >95%. SINUS RHYTHM WITH LOW VOLTAGE AND OCCASIONAL PVC'S RATE IN THE 60'S. BP STAYED SOFT BUT ONLY DIPPED BELOW 65 FOR A COUPLE OF Q15 MEASUREMENTS. TF GOING AT GOAL OF 45 THROUGH OG TUBE AT 65CM (TAPE). ROBLERO DRAINED 1100ML OF CLOUDY YELLOW URINE. PT HAS CALL LIGHT IN BED. RESTRAINTS IN PLACE. BEDSIDE REPORT GIVEN TO ONCOING DAY RN.
--- NOTE | 2024-12-22 07:53 | NUR ---
ASSUMPTION OF CARE ASSUME CARE OF PT AT 0700 WITH VENANCIO ARRIETA, RECIEVED REPORT FROM SHU ARRIETA. PT IS INTUBATED AND SEDATED WITH A RASS -3. VENT SETTINGS ARE AC/VC 18/400/5/50%, O2 SATURATIONS > 92%. CONTINUOUS CARDIAC MONITORING IN PLACE SHOWING SR WITH HR IN THE 70'S. BP STABLE. PROPOFOL INFUSING AT 30 AND PRECEDEX AT 0.7. OG TUBE PATENT AND SECURE. TF RATE AT A GOAL OF 45. ROBLERO IS PATENT AND DRAINING TO GREAVITY. RESTRAINTS IN PLACE. SEE FULL SHIFT ASSESMENT FOR DETAILS.
[2024-12-22] MEDS ORDERED: Metoprolol Succinate 25 MG TABCR PO SCH (09:00)
[2024-12-22] MEDS ORDERED: Furosemide 10 MG/ML 4ML Vial IV SCH (09:00)
[2024-12-22] MEDS ORDERED: Spironolactone 12.5 MG TAB PT SCH (09:00)
[2024-12-22] MEDS ORDERED: EPINEPHrine HCL 11.25 MG/0.5 ML VIAL INH ONE (09:30)
[2024-12-22] MEDS ORDERED: MethylPREDNISolone Sod Succ 40 MG VIAL IV ONE (09:35)
[2024-12-22] MEDS ORDERED: Midazolam HCl 1MG / ML 2ML Vial IV PRN ×2 (10:25→11:45)
[2024-12-22] MEDS ORDERED: Midazolam HCl 1MG / ML 2ML Vial ONE (10:30)
--- NOTE | 2024-12-22 10:30 | NUR ---
WORSENING AGITATION POST EXTUBATION AT APPROXIMATELY 1030 PT BECAME MORE AGITATED AND STARTED TO SWING, KICK, AND SPIT ON STAFF. VERBALLY ASSULTING STAFF WELL. PT STATES "I WILL FUCKING KILL YOU BITCH" AT MANY STAFF MEMBERS, PT WAS INITALLY ABLE TO BE REDIRECTED AND WAS NO LONGER ABLE TO. PT WAS MEDICATED PER EMAR AND WITH ADDITONAL ORDERS FROM DR. CHRISTOPHER, WITH NO EFFECT. SECURITY WAS CALLED TO BEDSIDE D/T THIS BEHAVIOR, SPIT MASK AND TOUGH CUFF RESTRAINTS WERE PLACED AT 1145 . PT CONTINUED WITH THIS BEHAVIOR DESPITE INTERVENTIONS, WILL REASSESS AND DISCONTINUE WHEN [id number]. DR CHRISTOPHER ROUNDED ON PT AND IS AWARE OF THIS.
[2024-12-22] MEDS ORDERED: Acetaminophen 650 MG Supp PR PRN (12:45)
[2024-12-22] MEDS ORDERED: LORazepam 2 MG/ML 1ML Injection IV PRN (12:45)
[2024-12-22] MEDS ORDERED: CefTRIAXone Sodium 1,000 MG in NS 100 ML IV SCH ×2 (13:00→14:00)
--- NOTE | 2024-12-22 13:14 | NUR ---
MAD Consult received. Reviewed record and spoke with nursing staff. Patient is still not fully oriented, lashing out, cussing, threatening, "I'm going to kill you!" to staff. He has been medicated post extubation and is in restraints at time of visit. He did not have enough mental clarity to redirection at time of visit. Spoke with staff. Encouraged them to watch for their own safety and utlize additional help or Security as necessary. Redirection not possible unless patient is alert and oriented and understands his behavior.
[2024-12-22] MEDS ORDERED: OLANZapine 10 MG Vial IM ONE ×2 (14:55→22:40)
--- NOTE | 2024-12-22 17:27 | NUR ---
END OF SHIFT SUMMARY PT IS AGITATED AND COMBATIVE WITH STAFF, NOT ABLE TO FOLLOW COMMANDS, PT IS FEBRILE WITH A CURRENT TEMP OF 100.6, MAX TEMP WAS 102.4. CONTINUOUS CARDIAC MONITORING IN PLACE SHOWING SR WITH HR IN THE 70'S. SBP IS 120'S WITH MAP > 65. PRECEDEX IS INFUSING AT 1.0 MCG/KG/HR, ZYPREXA AND VERSED WERE GIVEN. PT IS ON 2L NC, WITH OCCASIONAL APENIC EPISODES. DR. MARTINS IS AWARE OF APENIC EPISODES, ADVISED TO CALL IF APENIC EPISODES WORSEN OR LEADS TO RESPIRTORY DISTRESS. ETCO2 IS IN PLACE. PT HAD NO BM FOR THIS SHIFT. ROBLERO IS PATENT AND DRAINING TO GRAVITY WITH YELLOW URINE. TOUGH CUFF RESTRAINTS ARE IN PLACE. WILL CONTINUE TO MONITOR AND REPORT TO ONCOMING SHIFT.
--- NOTE | 2024-12-22 19:00 | NUR ---
ASSUMPTION OF CARE CARE OF PT ASSUMED FOLLOWING BEDSIDE REPORT FROM DAY RN. PT IN FOUR POINT TATS FOR VIOLENT BEHAVIOR. WILL ASSESS CONTINUED NEED AND CHART EVERY 15 MIN. PT CURSING AT STAFF, THRASHING IN BED, PULLING AT LINES. PRECEDEX INFUSING AT 0.8. PT IS IN SINUS RHYTHM RATE OF 75, BP STABLE AT 115/78. SAT >92% ON 4LNC WITH PERIODS OF APNEA. ROBLERO IN PLACE DRAINING CLOUDY YELLOW URINE.
--- NOTE | 2024-12-22 19:30 | NUR ---
UPDATE: ESCALTION OF LINE PULLING BEHAVIOR AND NEURO ASSESSMENT PT PULLING AT ROBLERO CATHETER TO POINT OF BLEEDING FROM URETHRA. AREA CLEANED WITH CATHETER CARE CLOTHS. ATTENDS PLACED. PT GIVEN DOSE OF FENTANYL, WHICH CALMED PT BRIEFLY. PT IS ALERT AND ORIENTED TO SELF ONLY. HE DOES NOT KNOW WHERE HE IS AND HE HAS BEEN MUMBLING/TALKING ABOUT THE NEED TO LEAVE BEFORE "THE ALIENS" (HARD TO TELL FOR SURE) COME.
--- NOTE | 2024-12-22 22:15 | NUR ---
UPDATE: RESTRAINTS REMOVED AT 1945, ALL RESTRAINTS REMOVED FOLLOWING PT BECOMING CALM AND APPEARING TO UNDERSTAND AND AGREE WITH NEED FOR SAFE BEHAVIOR WHILE IN THE ICU.
--- NOTE | 2024-12-22 22:43 | NUR ---
CALL FROM PROVIDER DR CHRISTOPHER CALLED AND ORDERED ZYPREXA 10MG IM X 1
[2024-12-23] VITALS (45 sets, daily range): BP systolic 73–148; BP diastolic 59–97
--- NOTE | 2024-12-23 00:07 | NUR ---
UPDATE: ROBLERO/URETHRAL INJURY SINCE SELF INJURY OF URETHRA FROM PULLING ON ROBLERO, ROBLERO CATHETER IS DRAINING MINIAML TO ZERO URINE. FLUSH WAS APPLIED FOR SECOND TIME SINCE INJURY AND MINIMAL DRAINING OCCURED. PT BLADDER SCANNED AT 326ML INSIDE BLADDER. ROBLERO REMOVED, AND EXPECTED, PT BEGAIN BLEEDING FROM PENIS. GUAZE IS BEING EMPLOYED TO SOAK UP BLOOD. WILL RE BLADDER SCAN IN 30 TO 60 MIN.
--- NOTE | 2024-12-23 01:31 | NUR ---
ESTIMATED BLOOD LOSS FROM URETHRAL INJURY IS 200 ML, INCLUDING SEVERAL LARGE CLOTS
[2024-12-23 03:43] LABS: BASOPHILS ABSOLUTE AUTO 0.03 K/mm3 (0.00-0.23); BASOPHILS PERCENT AUTO 0 % (0-2); EOSINOPHILS ABSOLUTE AUTO 0.03 K/mm3 (0.00-0.68); EOSINOPHILS PERCENT AUTO 0 % (0-6); Hematocrit 36.5 % (37.0-53.0); Hemoglobin 11.8 g/dL (13.5-17.5); IMMATURE GRAN ABSOLUTE AUTO 0.07 K/mm3 (0.00-0.10); IMMATURE GRAN PERCENT AUTO 0 % (0-1); LYMPHOCYTES ABSOLUTE AUTO 1.93 K/mm3 (0.84-5.20); LYMPHOCYTES PERCENT AUTO 12 % (21-46); MONOCYTES ABSOLUTE AUTO 1.49 K/mm3 (0.16-1.47); MONOCYTES PERCENT AUTO 9 % (4-13); Mean Corpuscular HGB 29.4 pg (26.0-34.0); Mean Corpuscular HGB Conc 32.3 g/dL (31.5-36.5); Mean Corpuscular Volume 91 fL (80-100); NEUTROPHILS ABSOLUTE AUTO 13.11 K/mm3 (1.96-9.15); NEUTROPHILS PERCENT AUTO 79 % (41-73); Platelet Count 323 K/mm3 (150-400); RDW Coefficient Variation 13.1 % (11.7-14.2); Red Blood Cell Count 4.02 M/mm3 (4.30-5.90); White Blood Cell Count 16.66 K/mm3 (4.00-11.30)
[2024-12-23 04:03] LABS: Albumin, Blood 2.8 g/dL (3.4-5.0); Albumin/Globulin Ratio 0.7 (0.8-1.8); Bilirubin, Total 0.5 mg/dL (0.1-1.0); Bun/Creatinine Ratio 30.6 (12.0-20.0); Calcium, Blood 8.7 mg/dL (8.5-10.1); Creatinine, Blood 1.7 mg/dL (0.60-1.20); Globulin, Blood 4.3 g/dL (2.2-4.0); Potassium, Blood 4.1 mmol/L (3.5-5.5); Total Protein, Blood 7.1 g/dL (6.4-8.2)
--- NOTE | 2024-12-23 05:28 | NUR ---
SHIFT SUMMARY PT LYING IN BED IN FOUR POINT TATS FOR NON-VIOLENT CONFUSION/PSYCHOSIS OF UNKNOWN ORIGIN. PT CONTINUES TO THRASH IN BED AND MUMBLE PARANOID DELUSIONS AND CUSS AT STAFF, THOUGH HE IS ORIENTED TO SELF ONLY. ZYPREXA 10MG IM WAS GIVEN JUST BEFORE MIDNIGHT- QUESTIONABLE EFFECTIVENES. 2 DOSES EACH OF ATIVAN, FENTANYL AND VERSED GIVEN FOR SEDATION THROUGHOUT SHIFT. PT STAYED IN SINUS RHYTHM IN THE 60-70'S WITH STABLE BP. RESPIRATIONS REGULAR WITH SOME PERIODS OF APNEA. PT ON 2-4L NC- ETCO2 REMOVED DUE TO PT COMFORT/AGGRAVATION. BNP THIS MORNING 1500 BUT PT LUNGS SOUNDS CLEAR- POSSIBLE MILD CRACKLES IN ANTERIOR RIGHT LUNG. BOWEL SOUNDS ACTIVE. ROBLERO REMOVED FOLLOWING PT INJURY TO SELF. 200ML EBL. PUREWICK PLACED. SOME OUTPUT NOTED IN CONTAINER AROUND 0500- NOT CHARTED. [facility] SHIFT REPORT GIVEN TO DAY RN.
--- NOTE | 2024-12-23 07:00 | NUR ---
ASSUMPTION OF CARE PT IS RECEIVING PRECEDEX 1.0MCG/KG/HR. PT IS RESTING, MAKES MOVEMENTS WITH EXTREMITIES BUT NOT FOLLOWING COMMANDS AT THIS TIME. PT IS 4 POINT TAT RESTRAINTS. BLE RESTRAINTS DISCONTINUED. HE IS ON 3L NC. SINUS ON MONITOR WITH RATE IN 50S-70S. MAP >65. PUREWICK AND ATTENDS IN PLACE WITH DARK RED/BROWN URINE DRAINING. TEMP 96.9. GOWN AND BLANKETS APPLIED. BED IN LOW POSITION, CALL LIGHT WITHIN REACH.
[2024-12-23] MEDS ORDERED: Tirofiban HCL M-Hyd/NS 250 ML IV SCH (09:15)
--- NOTE | 2024-12-23 12:50 | NUR ---
UPDATE PT RECEIVING PRECEDEX 0.2MCG/KG/HR. RESTRAINTS ARE OFF AT THIS TIME. PT IS AWAKE AND ANSWERS ORIENTATION QUESTIONS APPROPRIATELY. HE IS ABLE TO STATE HIS FULL NAME, DATE OF , THE YEAR, THAT HE HAD A HEART ATTACK, AND RECOGNIZES HIS NIECE WHO IS AT THE BEDSIDE. PT PASSED BEDSIDE SWALLOW. HE HAS A PRODUCTIVE COUGH AND USES YANKEUR INDEPENDENTLY. PT C/O "NEEDING SOMETHING FOR THIS COUGH". RT PROVIDED TREATMENT AND PT REPORTS RELIEF. BED ALARM ON, BED IN LOW POSITION WITH CALL LIGHT IN REACH.
--- NOTE | 2024-12-23 13:15 | NUR ---
JACOBO PEARL PT LYING IN BED SIDEWAYS WITH LEGS OVER SIDE RAIL AND HEAD AGAINST SIDE RAIL. THIS RN AND NELSON RN AT BEDSIDE TO BOOST AND REPOSITION PT. PT ATTEMPTS TO BOOST SELF BUT IS UNABLE TO. PT BEGINS YELLING, PROVIDED REORIENTATION AND EXPLANATION OF REPOSITIONING. PT REACHES TOWARD THIS RN'S NECK AND BEGINS YELLING. PT PULLING ON ECG LEADS, TAKING BP CUFF OFF, AND PULLING ON IV TUBING AND BEGINS THRASHING IN BED AND SWINGING WITH EXTREMITIES. PT IS NOT RECEPTIVE TO REDIRECTION. JACOBO PEARL CALLED. ATIVAN PULLED FROM [employer]. PT LOOKS AT JUAN R RN AND STS "I WILL FUCKING KILL YOU" AND ATTEMPTS TO BITE JUAN R DURING MEDICATION ADMINISTRATION. PT PLACED IN VIOLENT 4 POINT TATS. PULSES PRESENT IN ALL EXTREMITIES. DR MISTRY AT BEDSIDE.
[2024-12-23] MEDS ORDERED: Haloperidol Lactate Inj. 5 MG/ML Injection IM PRN (13:25)
[2024-12-23 17:21] LABS: Mean Corpuscular HGB 28.7 pg (26.0-34.0); Mean Corpuscular HGB Conc 31.6 g/dL (31.5-36.5); Mean Corpuscular Volume 91 fL (80-100); Mean Platelet Volume 9.7 fL (9.1-12.4); Platelet Count 360 K/mm3 (150-400); RDW Standard Deviation 43.3 fL (35.1-46.3); Red Blood Cell Count 4.18 M/mm3 (4.30-5.90); White Blood Cell Count 14.67 K/mm3 (4.00-11.30)
--- NOTE | 2024-12-23 19:08 | NUR ---
SHIFT SUMMARY PT RECEIVING PRECEDEX 1.0MCG/KG/HR AND AGGRASTAT 0.075MCG/KG/HR. PT IS ALERT TO SELF, INCONSISTENTLY FOLLOWS SOME SIMPLE COMMANDS. AGITATED AT TIMES. HE WAS ABLE TO PASS BEDSIDE SWALLOW AND TAKE EVENING PILLS WITH APPLESAUCE. HE IS ON 2L NC. SUNUS ON MONITOR WITH RATE IN 60S-90S. MAP >65. PUREWICK REMAINS IN PLACE. URINE CONTINUES TO BE DARK RED/TEA COLORED. REPEAT H&H DONE THIS EVENING. PLAN TO CONTINUE AGGRASTAT AND ATTEMPT TO GIVE PM BRILINTA. PER PHARMACY, AGGRASTAT MAY BE DISCONTINUED 2 HRS POST ADMINISTRATION. HE REMAINS IN BUE TATS, BED ALARM ON, BED IN LOW POSITION WITH CALL LIGHT WITHIN REACH.
--- NOTE | 2024-12-23 20:21 | NUR ---
ASSUMPTION OF CARE CARE OF PT ASSUMED FOLLOWING BEDSIDE REPORT FROM DAY RN. PT IN 2 POINT TATS FOR MEDICAL REASONS. WILL ASSESS CONTINUED NEED AND CHART EVERY 2 HR. PT RECENTLY CURSING AT STAFF, THRASHING IN BED, PULLING AT LINES. CURRENTLY CALM WITH INTERMITTENT SHOUTING AND UNINTELLIGIBLE SPEECH, THOUGH HE DOES FOLLOW MANY COMMANDS. PRECEDEX INFUSING AT 1.0. PT IS IN SINUS RHYTHM RATE OF 75, BP STABLE AT 115/89. SAT >92% ON 2LNC WITH PERIODS OF APNEA. PUREWICK IN PLACE DRAINING RED/BROWN URINE THAT SHOULD CONTAIN BLOOD AFTER PT SELF-INJURY PULLING ON ROBLERO LAST NIGHT. WILL REVIEW AND CONTINUE PLAN OF CARE.
[2024-12-24] VITALS (17 sets, daily range): BP systolic 90–142; BP diastolic 73–106
[2024-12-24 04:28] LABS: Hematocrit 36.7 % (37.0-53.0); Hemoglobin 11.9 g/dL (13.5-17.5); Mean Corpuscular HGB 29.2 pg (26.0-34.0); Mean Corpuscular HGB Conc 32.4 g/dL (31.5-36.5); Mean Corpuscular Volume 90 fL (80-100); Mean Platelet Volume 9.8 fL (9.1-12.4); Platelet Count 375 K/mm3 (150-400); RDW Coefficient Variation 12.9 % (11.7-14.2); RDW Standard Deviation 42.8 fL (35.1-46.3); Red Blood Cell Count 4.08 M/mm3 (4.30-5.90); White Blood Cell Count 14.14 K/mm3 (4.00-11.30)
[2024-12-24 04:47] LABS: Bun/Creatinine Ratio 35.3 (12.0-20.0); Calcium, Blood 8.8 mg/dL (8.5-10.1); Creatinine, Blood 1.5 mg/dL (0.60-1.20); Magnesium, Blood 2.6 mg/dL (1.6-2.4); Potassium, Blood 3.9 mmol/L (3.5-5.5)
--- NOTE | 2024-12-24 06:05 | NUR ---
SHIFT SUMMARY PT LYING IN BED IN TWO POINT TATS (UPPER EXTREMITIES) FOR NON-VIOLENT CONFUSION/PSYCHOSIS OF UNKNOWN ORIGIN. PT CONTINUES TO THRASH IN BED AND MUMBLE PARANOID DELUSIONS AND CUSS AT STAFF, THOUGH HE IS ORIENTED TO SELF ONLY. PRECEDEX INFUSING AT 0.9. ADJUNCT SEDATION UTILIZED PER OCT. PT STAYED IN SINUS RHYTHM IN THE 60-70'S WITH STABLE BP. RESPIRATIONS REGULAR WITH SOME PERIODS OF APNEA. PT ON 2-4L NC- ETCO2 REMOVED DUE TO PT COMFORT/AGGRAVATION. LUNGS CLEAR/DIMINISHED BASES. BOWEL SOUNDS ACTIVE. PUREWICK PUT OUT 300ML OF DARK RED/BROWN URINE. PUREWICK REPLACED. BEDSIDE SHIFT REPORT GIVEN TO DAY RN.
[2024-12-24] MEDS ORDERED: Potassium Chloride 40 MEQ in NS 250 ML IV ONE (06:35)
--- NOTE | 2024-12-24 10:40 | NUR ---
START OF SHIFT PT RESTING IN BED. PT APPEARS COMFORTABLE ONE MOMENT AND UNCOMFORTABLE THE NEXT. PT DROWSY PER SEDATION ON EMAR BUT STILL APPEARS TO BE AGGITATED. PT STILL PULLING LINES AND CORDS AND REMAINS IN SBLUE RESTRAINTS. MOTHER CAME TO BEDSIDE AND IMMEDIATELY LEFT AND STATED SHE WOULD HEAD BACK HOME TO [place]. WILL CONTINUE WITH THE PLAN OF CARE.
[2024-12-24] MEDS ORDERED: Haloperidol Lactate Inj. 5 MG/ML Injection IM PRN ×2 (11:00→11:15)
[2024-12-24] MEDS ORDERED: OLANZapine ODT 5 MG Tab MM PRN (11:00)
[2024-12-24] MEDS ORDERED: Ziprasidone Mesylate 20 MG / Vial IM ONE (11:25)
[2024-12-24] MEDS ORDERED: Thiamine HCl 100 MG in NS 50 ML IV SCH (12:00)
--- NOTE | 2024-12-24 18:37 | NUR ---
SHIFT SUMMARY PT REMAINS AGGITATED THROUGHOUT THE SHIFT. PT MENTATION IS EXTREMELY VOLATILE BEING COOPERATIVE ONE MOMENT AND VERY AGGITATED THE NEXT. PT APPEARS TO BE MORE RESPONSIVE TO ANTIPSYCHOTIC MEDICATIONS APPEARING MORE APPROPRIATE AFTERWARDS. PT REMAINS ON PRECEDEX GTT D/T THE AGGITATION. MOTHER STATED SHE IS HEADED BACK UP TO [place] AND WILL BE CALLING FOR UPDATES.
--- NOTE | 2024-12-24 19:43 | NUR ---
ASSUMPTION OF CARE CARE OF PT ASSUMED FOLLOWING BEDSIDE REPORT FROM DAY RN. PT IN 2 POINT TATS FOR MEDICAL/DELUSIONS REASONS. WILL ASSESS CONTINUED NEED AND CHART EVERY 2 HR. PT RECENTLY CURSING AT STAFF, THRASHING IN BED, PULLING AT LINES, AND EATING LINES. CURRENTLY CALM WITH INTERMITTENT SHOUTING AND UNINTELLIGIBLE SPEECH, THOUGH HE DOES FOLLOW MANY COMMANDS. PT ALSO RECOGNIZED NAMES OF NEIGHBORS WHO CALLED ABOUT HIM AND GAVE PERMISSION TO SPEAK WITH THEM ABOUT HIS CARE. PRECEDEX INFUSING AT 1.0. PT IS IN SINUS RHYTHM RATE OF 84, BP STABLE AT 110/93. SAT >92% ON 2LNC WITH PERIODS OF APNEA. PUREWICK IN PLACE DRAINING RED/BROWN URINE. PT SELF-INJURY PULLING ON ROBLERO TWO NIGHTS AGO. WILL REVIEW AND CONTINUE PLAN OF CARE.
--- NOTE | 2024-12-24 20:00 | NUR ---
FRIENDS/FAMILY PHONE CALLS SPOKE WITH NEIGHBORS, ASHLEY BARRIGA AND LISA CRESPO, WHO INQUIRED ABOUT PT AND SAID PT HAS SEEMED NORMAL OF LATE, KIND AND GENEROUS. PT HAS BEEN WORRIED ABOUT CARDIAC HEALTH AND TOLD THEM 6 MONTHS AGO THAT HE ONLY HAS 1 YR TO LIVE. PT WAS ASKED IF STAFF CAN SPEAK WITH THEM ABOUT HIS CARE, AND HE AGREED. NAMES ADDED TO APPROVED CONTACT LIST. LISA STEPHENSON, PT NIECE, ALSO CALLED TO ASK ABOUT PT. SHE WAS GIVEN AN UPDATE. SHE WAS SURPRISED TO LEARN THAT PT MAY HAVE BEEN USING ILLICIT SUBSTANCES CURRENTLY, SAYING SHE THOUGHT "THAT WAS ALL IN THE PAST."
[2024-12-25] VITALS (21 sets, daily range): BP systolic 82–141; BP diastolic 52–103
[2024-12-25 04:34] LABS: Hematocrit 39.7 % (37.0-53.0); Hemoglobin 12.9 g/dL (13.5-17.5); Mean Corpuscular HGB 28.9 pg (26.0-34.0); Mean Corpuscular HGB Conc 32.5 g/dL (31.5-36.5); Mean Corpuscular Volume 89 fL (80-100); Mean Platelet Volume 9.6 fL (9.1-12.4); Platelet Count 402 K/mm3 (150-400); RDW Coefficient Variation 12.7 % (11.7-14.2); RDW Standard Deviation 41.6 fL (35.1-46.3); Red Blood Cell Count 4.46 M/mm3 (4.30-5.90); White Blood Cell Count 13.61 K/mm3 (4.00-11.30)
[2024-12-25 04:57] LABS: Bun/Creatinine Ratio 35.5 (12.0-20.0); Creatinine, Blood 1.55 mg/dL (0.60-1.20); Potassium, Blood 4.3 mmol/L (3.5-5.5)
--- NOTE | 2024-12-25 06:24 | NUR ---
SHIFT SUMMARY PT LYING IN BED IN TWO POINT TATS (UPPER EXTREMITIES) FOR NON-VIOLENT CONFUSION/PSYCHOSIS OF UNKNOWN ORIGIN. PT CONTINUES TO INTERMITTENTLY THRASH IN BED AND MUMBLE PARANOID DELUSIONS AND CUSS AT STAFF, THOUGH THIS HAPPENED LESS FREQUENTLY THAN THE PREVIOUS TWO NIGHTS, AND LESS ADJUNCT SEDATION WAS UTILIZED THIS SHIFT WELL. PRECEDEX INFUSING AT 1.1. ADJUNCT SEDATION UTILIZED PER OCT. PT STAYED IN SINUS RHYTHM IN THE 60-70'S WITH STABLE BP. RESPIRATIONS REGULAR WITH SOME PERIODS OF APNEA. PT ON 2-4L NC. LUNGS CLEAR/DIMINISHED BASES. BOWEL SOUNDS HYPOACTIVE. PUREWICK PUT OUT 640ML OF DARK RED/BROWN URINE. BEDSIDE SHIFT REPORT GIVEN TO DAY RN.
--- NOTE | 2024-12-25 18:10 | NUR ---
END OF SHIFT SUMMARY PT MORE APPROPRIATE TODAY. CAN CONVERSATE WITH PT WITH FLIGHT OF IDEAS. PT COMPLAINS OF THIRST AFTER ABOUT 2L OF PO FLUID INTAKE. PT BECAME MORE RESTLESS AND ANXIOUS THROUGHOUT THE SHIFT. RESTRAINTS HAVE BEEN DC. PT EASILY REDIRECTABLE BUT QUICKLY FORGETS. PT STILL PULLING AT LINES AND CORDS. PT WAS BITING/SUCKING HAND, AND CHEWING ON BLOOD PRESSURE CUFF CORD. PT STILL APPEARS TO HAVE HALLUCINATIONS. WILL CONTINUE WITH PLAN OF CARE.
--- NOTE | 2024-12-25 20:20 | NUR ---
ASSUME CARE: PT ALERT TO VERBAL STIMULI, RASS -3, UNABLE TO ANSWER QUESTIONS. PRECEDEX AT 0.7 MCG/KG/HR AT SHIFT CHANGE. SEE FLOWSHEET FOR PRECEDEX TITRATIONS. PT UNABLE TO TAKE PO MEDS AT THIS TIME, WILL REASSESS. SBP 110s, MAP>65. MONITOR SHOWS SINUS TACH W/PVCs, RATE 100-110. SPO2>95% ON 2L NC. PUREWICK IN PLACE DRAINING TO SUCTION. SOME BLOOD NOTED IN PUREWICK FROM PAST ROBLERO TRAUMA. WILL UPDATE NEEDED.
[2024-12-26] VITALS (18 sets, daily range): BP systolic 80–139; BP diastolic 47–104
[2024-12-26 03:34] LABS: Hematocrit 45.2 % (37.0-53.0); Hemoglobin 14.8 g/dL (13.5-17.5); Mean Corpuscular HGB 28.6 pg (26.0-34.0); Mean Corpuscular HGB Conc 32.7 g/dL (31.5-36.5); Mean Corpuscular Volume 87 fL (80-100); Mean Platelet Volume 9.5 fL (9.1-12.4); Platelet Count 464 K/mm3 (150-400); RDW Coefficient Variation 12.6 % (11.7-14.2); Red Blood Cell Count 5.18 M/mm3 (4.30-5.90); White Blood Cell Count 17.38 K/mm3 (4.00-11.30)
[2024-12-26 03:59] LABS: Albumin/Globulin Ratio 0.6 (0.8-1.8); Bilirubin, Total 0.7 mg/dL (0.1-1.0); Bun/Creatinine Ratio 33.9 (12.0-20.0); Creatinine, Blood 1.71 mg/dL (0.60-1.20); Globulin, Blood 4.7 g/dL (2.2-4.0); Potassium, Blood 3.8 mmol/L (3.5-5.5); Total Protein, Blood 7.7 g/dL (6.4-8.2)
--- NOTE | 2024-12-26 05:34 | NUR ---
SHIFT SUMMARY: DECREASED SEDATION AT START OF SHIFT TO WAKE PT ENOUGH TO TAKE PO MEDICATION. PT WAS ABLE TO WAKE AND ASKED FOR WATER AND WAS ABLE TO TAKE PO MEDS. PT ASKING FOR "A RIFLE TO SHOOT CATS WITH" AND STARTED GETTING MORE AGITATED, MEDICATED PER EMAR. LATER IN THE SHIFT WHILE PERFORMING ADLs PT ASKED FOR "A RIFLE TO SHOOT PEOPLE WITH AND A DETINATOR TO BLOW PEOPLE UP". WHEN CLEANING PT UP FROM INCONTINENT BM, PT ACTED LIKE HE WOULD HIT THE HELPING RN, BUT STOPPED. RASS BETWEEN -2 TO +2, PRECEDEX AT 0.5 MCG/KG/HR. RESTRAINTS OFF FOR WHOLE SHIFT. SBP 110s, MAP>65. MONITOR SHOWS SINUS RYTHM W/PVCs, RATE 70-80s. SPO2>95% ON 2L NC. PT ABLE TO HAVE INCONTINENT BM, PURWICK CHANGED AND IN PLACE DRAINING DARK RED/BROWN URINE. OLD SWAN SITE TO RIGHT FEMORAL NOTED TO BE RED W/PURULENT SCAB. MARC SECOND RN FOR SKIN CHECK. PICTURE IN CHART. WILL REPORT TO ONCOMING RN.
--- NOTE | 2024-12-26 07:06 | NUR ---
CARE ASSUMPTION DURING REPORT PT WAS SLEEPING IN BED AND IN NO IMMEDIATE DISTRESS. PER CIRCUIT JUDGE NURSE PT WAS EXTUBATED ON THE AND PT HAD EPISODES OF AGGRIVATION DURING CARE THREATENING STAFF MEMBERS. PT CURRENTLY ON 2L OF OXYGEN VIA NASAL CANNULA, BLOOD PRESSURE 93/71 PER MONITOR AND HR IN THE 70'S.
--- NOTE | 2024-12-26 08:55 | NUR ---
DURING MEDICATION ADMINISTRATION, PT WAS DROWSY BUT VERBALLY COMMUNICATING WITH STAFF. PT HAD TAKEN 4 OUT OF THE 6 ORAL MEDICATIONS SUCCESSFULLY WITH WATER BUT WHILE DRINKING STAFF WOULD HAVE TO MANAGE HOW MUCH HE TOOK IN BECAUSE HE WOULD CHUG IT QUICKLY. PT HAD SEVERAL BITES OF YOGURT IN BETWEEN BUT WHILE GIVING THE LAST 2 PILLS PT WOULD DRINK THE WATER BUT NOT SWALLOW THE PILLS AND AFTER A FEW ATTEMPTS OF GIVING WATER TO SWALLOW PILLS PT BEGAN TO ASPIRATE ON THE WATER WHICH LED TO EMESIS BEING EXPELLED. BOTH PILLS CAME OUT DURING EMESIS EPISODE AND SUCTIONING WAS DONE WHILE APPLYING OXYGEN MASK. PT'S OXYGEN SATURATION WAS MONITORED AND MAINTAINED ABOVE 92% AND ONCE SATURATION REACHED 98-100% PT WAS PUT BACK ON ROOM AIR.
[2024-12-26] MEDS ORDERED: Metoprolol Succinate 25 MG TABCR PO ONE (12:00)
[2024-12-26] MEDS ORDERED: Nystatin 100,000 Unit/ML Susp 5 ML UDC SS SCH (13:00)
--- NOTE | 2024-12-26 13:39 | NUR ---
UPDATE PT W FREQUENT RUNS OF SVT. DR. MISTRY NOTIFIED AND EKG AND TROPONIN ORDERED. EKG DONE AND DR. SALAZAR WELL DR. MISTRY NOTIFIED OF EKG READING. PT DENYING CHEST PAIN OR PRESSURE BUT IS REPORTING SOME SOB. NO NEW ORDERS FROM CARDIOLOGY BUT DR. MISTRY ORDERING ADDITIONAL IV LOPRESSOR TO BE GIVEN.
[2024-12-26] MEDS ORDERED: Metoprolol Tartrate 1 MG/ML 5 ML VIAL IV ONE (13:45)
--- NOTE | 2024-12-26 18:57 | NUR ---
SHIFT SUMMARY PT THROUGHOUT THE DAY HAS HAD FREQUENT EPISODES OF AGGITATION LEADING TO HIM ATTEMPTING TO GET OUT OF THE BED STATING HE "WANTS TO GO HOME". AT THE BEGINNING OF SHIFT PT WAS ON 0.6 OF PRECEDEX THAT WAS THEN TITRATED DOWN AND WAS OFF OF IT COMPLETELY BY THE AFTERNOON. HE WAS UP IN THE CHAIR FOR ABOUT AN HOUR OR TWO DURING THE MIDDLE OF THE DAY BUT BECAME INCREASINGLY AGGITATED WITH FREQUENT RUNS OF SVT IN THE 180'S ATTEMPTING TO STAND, WHEN THEN US TO PUT HIM BACK ON PRECEDEX. PT WAS THEN PLACED BACK IN THE BED VIA LIFT. PT HAS HAD 5 LIQUID STOOL BOWEL MOVEMENTS THIS SHIFT AND A STOOL SAMPLE WAS TAKEN DURING THE LAST EPISODE. PT PULLED OUT LEFT FOREARM IV THIS AFTERNOON THAT WAS THEN REPLACED WITH A 20G IN THE CORRINA. PT INCREASINGLY AGGITATED TOWARDS THE END OF SHIFT, ATTEMPTING TO GET OUT OF THE BED AGAIN AND BEGAN TO SPIT ON STAFF MEMBERS IN THE ROOM. PT HAS SINCE BEEN RESTING IN BED WITH EYES CLOSED.
[2024-12-26 21:17] LABS: C DIFFICILE DNA NEGATIVE (Negative)
--- NOTE | 2024-12-26 21:30 | NUR ---
ASSUMPTION OF CARE: ASSUMED CARE OF PT AT 1905. PT IS A&O TO SELF AND KNEW HIS BIRTHDAY BUT UNABLE TO TELL ME WHERE HE IS AT OR THE YEAR. PT MUMBLES IN HIS SLEEP AND WHEN AWAKE REPEATS STATEMENTS SUCH "DONT SHOOT THE BUNNY, HE'S CUTE". PT CAN SOMETIMES FOLLOW SIMPLE COMMANDS SUCH OPENING HIS EYES WHEN ASKED TOO. PT IS ON RA WITH SPO2 AT 92%. PT'S SBP IS IN THE 120'S AND HR IN THE 60'S WITH PALPABLE FAINT/THREADY PULSES.PT HAS 0.6 MCG/KG/HR INFUSING PRECEDEX. PT HAS PATENT REBECCA PG AND CORRINA IV. PT HAD A NEW PURE WICK PLACED THIS SHIFT THAT IS PATENT. PT WAS ABLE TO SWALLOW MEDICATIONS WHEN PROMPTED. PT HAS BED LOW AND LOCKED W/BED ALARM SET.
[2024-12-27] VITALS: BP 80/62
[2024-12-27 01:00] VITALS: BP 117/96
[2024-12-27 02:07] VITALS: BP 116/67
[2024-12-27] MEDS ORDERED: ChlordiazePOXIDE 25 MG Cap PO PRN (02:10)
--- NOTE | 2024-12-27 02:29 | NUR ---
UPDATE: PT VERY ANXIOUS STATING HE'S TIRED OF BEING IN HERE, WANTS TO GO HOME, IS ANXIOUS AND WANTS TO RIP HIS FEET OFF. PT ASKING FOR SOMETHING TO "KNOCK HIM OUT" SO HE CAN SLEEP. PT PUT BACK INTO BED FROM CHAIR. CALL PLACED TO DR. RAUSCH, ORDER GIVEN FOR LIBRIUM PO. ADMININSTERED MEDICATION TO PT PER EMAR. PT NOW RESTING IN BED. PT REFUSING TO KEEP SPO2 MONITOR ON. STATES IT IS AGGITATING HIM MORE AND HE DOES NOT LIKE IT. THIS RN WILL DO SPOT CHECKS FOR SPO2 FOR PT COMFORT. PT SATTING >94% BEFORE REMOVING SPO2 PROBE. BED ALARM FOR SAFETY.
[2024-12-27 03:05] VITALS: BP 132/92
[2024-12-27 03:38] LABS: BASOPHILS ABSOLUTE AUTO 0.11 K/mm3 (0.00-0.23); BASOPHILS PERCENT AUTO 1 % (0-2); EOSINOPHILS ABSOLUTE AUTO 0.66 K/mm3 (0.00-0.68); EOSINOPHILS PERCENT AUTO 4 % (0-6); Hematocrit 43.8 % (37.0-53.0); Hemoglobin 14.5 g/dL (13.5-17.5); IMMATURE GRAN ABSOLUTE AUTO 0.17 K/mm3 (0.00-0.10); IMMATURE GRAN PERCENT AUTO 1 % (0-1); LYMPHOCYTES ABSOLUTE AUTO 3.07 K/mm3 (0.84-5.20); LYMPHOCYTES PERCENT AUTO 17 % (21-46); MONOCYTES ABSOLUTE AUTO 1.33 K/mm3 (0.16-1.47); MONOCYTES PERCENT AUTO 7 % (4-13); Mean Corpuscular HGB Conc 33.1 g/dL (31.5-36.5); Mean Corpuscular Volume 88 fL (80-100); Mean Platelet Volume 9.7 fL (9.1-12.4); NEUTROPHILS ABSOLUTE AUTO 12.78 K/mm3 (1.96-9.15); NEUTROPHILS PERCENT AUTO 71 % (41-73); Platelet Count 505 K/mm3 (150-400); RDW Coefficient Variation 12.4 % (11.7-14.2); RDW Standard Deviation 39.8 fL (35.1-46.3); White Blood Cell Count 18.12 K/mm3 (4.00-11.30)
[2024-12-27 03:59] LABS: Albumin/Globulin Ratio 0.6 (0.8-1.8); Bilirubin, Total 0.6 mg/dL (0.1-1.0); Bun/Creatinine Ratio 30.9 (12.0-20.0); Calcium, Blood 8.5 mg/dL (8.5-10.1); Creatinine, Blood 1.65 mg/dL (0.60-1.20); Globulin, Blood 4.7 g/dL (2.2-4.0); Potassium, Blood 3.6 mmol/L (3.5-5.5); Total Protein, Blood 7.7 g/dL (6.4-8.2)
--- NOTE | 2024-12-27 05:27 | NUR ---
SHIFT SUMM: PT A&OX2 AND ORIENTED TO SELF AND KNOWS HE IS AT "[facility]".PT HAS BEEN UP TO THE CHAIR THIS SHIFT AND DID WELL FOR A WHILE AND THEN STARTED TO BECOME AGITATED SO BACK TO BED. PT WAS REDIRECTABLE BUT HOSPITALIST ORDERED LIBRIUM (SEE EMAR) TO HELP THE PATIENT CALM DOWN AND LESSEN HIS ANXIETY. PT ALSO RECIEVED A DOSE OF FENTANYL FOR PAIN. PT STATES NEEDING TO GO HOME OFTEN AND READY TO BE D/C'D. PT HAS HAD AN APPETITE THIS SHIFT AND IS VERY THIRSTY. PT CONVERTED FROM SR TO AFIB/FLUTTER THIS AM WITH HR IN THE 150-170'S. ONE TIME DOSE OF IV LOPRESSOR GIVEN PER DR. RAUSCH BY BERNY SALAS. PT STILL CURRENTLY IN THE 130'S-150'S AFTER LOPRESSOR. DR. RAUSCH AWARE. SBP 100'S. PT ASYMPTOMATIC WITH CARDIAC EPISODE. PT VERY AGGITATED THIS AM STATING HE WANTS TO LEAVE AND IS FEELING BETTER. PIV TO CORRINA PATENT, PG TO REBECCA PATENT. PRECEDEX ON SB SINCE MIDNIGHT. PUREWICK DRAINING YELLOW URINE TO SUCTION. PT ON RA WITH SPO2 MID 90'S WITH SPOT CHECKS. DENIES SOB/CHEST PAIN. BED LOCKED.
[2024-12-27] MEDS ORDERED: Metoprolol Tartrate 1 MG/ML 5 ML VIAL IV ONE (05:35)
--- NOTE | 2024-12-27 06:31 | NUR ---
AMA: PT VERY ADAMENT THAT HE GO HOME DESPITE MULTIPLE ATTEMPTS AT KEEPING HIM HERE TO RECEIVE APPRORPIATE CARE. CALL PLACED TO DR. RAUSCH WHO WAS UNAVAILABLE TO COME TO BEDSIDE, PT EDUCATED ON THE RISK OF LEAVING AMA, INCLUDING THE RISK OF , STATES HE DOES NOT CARE AND IS LEAVING. PT ALERT AND ORIENTED X4 AT TIME OF AMA. PT HEART RATE STILL ELEVATED AT TIME OF AMA. PIV AND POWERGLIDE REMOVED BEFORE LEAVING. PT LEFT IN PAPER SCRUBS WITH BELONGINGS IN BAG. PT MOTHER CONTACTED AND MADE AWARE THAT PT LEAVING. PT TAKEN OUT BY WHEELCHAIR WITH SECURITY. AMA FORM SIGNED BY PT AND PLACED IN CHART. PT LEFT AT 0622.
[2024-12-27] MEDS ORDERED: Metoprolol Succinate 25 MG TABCR PO SCH (09:00)
== END 2024-12-27 06:22 | disposition left against medical advice (07) | DRG 270 ==
LOC: ER 03:02 → ICUE 05:51
PROVIDERS: Emergency Medicine; Family Medicine; Internal Medicine; Internal Medicine Cardiovascular Disease; Internal Medicine Critical Care Medicine; ADMIT Student in an Organized Health Care Education/Training Program
PROC: 5A02210 Assistance with Cardiac Output using Balloon Pump, Continuous (ICD-10-PCS; principal; 2024-12-18)
PROC: 0271356 Dilation of Coronary Artery, Two Arteries, Bifurcation, with Two Drug-eluting Intraluminal Devices, Percutaneous Approach (ICD-10-PCS; principal; 2024-12-18)
PROC: 5A1955Z Respiratory Ventilation, Greater than 96 Consecutive Hours (ICD-10-PCS; 2024-12-18)
PROC: 5A09457 Assistance with Respiratory Ventilation, 24-96 Consecutive Hours, Continuous Positive Airway Pressure (ICD-10-PCS; 2024-12-18)
PROC: 0BH17EZ Insertion of Endotracheal Airway into Trachea, Via Natural or Artificial Opening (ICD-10-PCS; 2024-12-18)
PROC: 0DH67UZ Insertion of Feeding Device into Stomach, Via Natural or Artificial Opening (ICD-10-PCS; 2024-12-18)
PROC: B2111ZZ Fluoroscopy of Multiple Coronary Arteries using Low Osmolar Contrast (ICD-10-PCS; 2024-12-18)
PROC: 4A023N6 Measurement of Cardiac Sampling and Pressure, Right Heart, Percutaneous Approach (ICD-10-PCS; 2024-12-18)
DX: I21.09 ST elevation (STEMI) myocardial infarction involving other coronary artery of anterior wall (principal); G93.41 Metabolic encephalopathy; I50.23 Acute on chronic systolic (congestive) heart failure; J96.01 Acute respiratory failure with hypoxia; J96.02 Acute respiratory failure with hypercapnia; R57.0 Cardiogenic shock; I42.0 Dilated cardiomyopathy; I13.0 Hypertensive heart and chronic kidney disease with heart failure and stage 1 through stage 4 chronic kidney disease, or unspecified chronic kidney disease; N17.9 Acute kidney failure, unspecified; E87.1 Hypo-osmolality and hyponatremia; E87.20 Acidosis, unspecified; N18.31 Chronic kidney disease, stage 3a; E78.5 Hyperlipidemia, unspecified; E83.51 Hypocalcemia; R45.1 Restlessness and agitation; I27.20 Pulmonary hypertension, unspecified; F60.9 Personality disorder, unspecified; I73.9 Peripheral vascular disease, unspecified; I25.10 Atherosclerotic heart disease of native coronary artery without angina pectoris; I25.5 Ischemic cardiomyopathy; J44.9 Chronic obstructive pulmonary disease, unspecified; F15.10 Other stimulant abuse, uncomplicated; F10.10 Alcohol abuse, uncomplicated; Z95.5 Presence of coronary angioplasty implant and graft; Z78.1 Physical restraint status; Z87.891 Personal history of nicotine dependence; Z79.899 Other long term (current) drug therapy; Z53.29 Procedure and treatment not carried out because of patient's decision for other reasons
CPT/HCPCS: 0241U; 31500; 36415; 36600; 51702; 71045; 76937; 80048; 80053; 80061; 81001; 82330; 82570; 82803; 82947; 83605; 83735; 83880; 84100; 84145; 84156; 84443; 84484; 85025; 85027; 85347; 85379; 85520; 85610; 85730; 87070; 87205; 87493; 92610; 93005; 93010; 93456; 94002; 94003; 94640; 94644; 94660; 94664; 94760; 94762; 96365-59; 96375-59; 99152; 99153; 99285-25; A9270; C1725; C1751; C1769; C1874; C1887; C1894; C8929; C9600; C9606; J0461; J0612; J0696; J1630; J1644; J1650; J1938; J2060; J2250; J2270; J2371; J2470; J2704; J2919; J3010; J3246; J3411; J3475; J3480; J3486; J7030; J7040; J7050; J7060; Q9957; Q9967

== ENCOUNTER 2025-01-02 08:11 | Inpatient (IN) | payer MEDICARE ==
[~2025-01-02] VITALS: Ht 170.2 cm; Wt 84.0 kg
[2025-01-02] MEDS ORDERED: Ipratropium Bromide INH 0.02% 0.5 mg/2.5ML Vial INH SCH (08:35)
[2025-01-02 08:40] LABS: BASOPHILS PERCENT AUTO 1 % (0-2); EOSINOPHILS ABSOLUTE AUTO 0.39 K/mm3 (0.00-0.68); EOSINOPHILS PERCENT AUTO 3 % (0-6); Hematocrit 29.7 % (37.0-53.0); IMMATURE GRAN ABSOLUTE AUTO 0.03 K/mm3 (0.00-0.10); IMMATURE GRAN PERCENT AUTO 0 % (0-1); LYMPHOCYTES ABSOLUTE AUTO 2.59 K/mm3 (0.84-5.20); LYMPHOCYTES PERCENT AUTO 21 % (21-46); MONOCYTES ABSOLUTE AUTO 0.74 K/mm3 (0.16-1.47); MONOCYTES PERCENT AUTO 6 % (4-13); Mean Corpuscular HGB 29.7 pg (26.0-34.0); Mean Corpuscular HGB Conc 33.7 g/dL (31.5-36.5); Mean Corpuscular Volume 88 fL (80-100); Mean Platelet Volume 9.9 fL (9.1-12.4); NEUTROPHILS ABSOLUTE AUTO 8.56 K/mm3 (1.96-9.15); NEUTROPHILS PERCENT AUTO 69 % (41-73); Platelet Count 383 K/mm3 (150-400); RDW Coefficient Variation 13.4 % (11.7-14.2); RDW Standard Deviation 42.8 fL (35.1-46.3); Red Blood Cell Count 3.37 M/mm3 (4.30-5.90); White Blood Cell Count 12.41 K/mm3 (4.00-11.30)
[2025-01-02] MEDS ORDERED: Albuterol 2.5 MG/3 ML VIAL INH SCH (08:40)
[2025-01-02 09:08] LABS: Albumin, Blood 2.6 g/dL (3.4-5.0); Albumin/Globulin Ratio 0.6 (0.8-1.8); Bilirubin, Total 0.5 mg/dL (0.1-1.0); Bun/Creatinine Ratio 13.1 (12.0-20.0); Calcium, Blood 8.3 mg/dL (8.5-10.1); Creatinine, Blood 1.3 mg/dL (0.60-1.20); Globulin, Blood 4.1 g/dL (2.2-4.0); Potassium, Blood 3.2 mmol/L (3.5-5.5); Total Protein, Blood 6.7 g/dL (6.4-8.2)
[2025-01-02] MEDS ORDERED: Furosemide 10 MG/ML 4ML Vial IV ONE (09:25)
[2025-01-02] MEDS ORDERED: Aspirin 325 MG Tab PO ONE (09:35)
[2025-01-02] MEDS ORDERED: Ticagrelor 90 MG TABLET PO ONE ×2 (09:55→10:50)
[2025-01-02] MEDS ORDERED: Potassium Chloride 20 MEQ TabCR PO ONE (10:00)
[2025-01-02 10:52] LABS: U Amphetamine Screen Not Detected; U Barbituate Screen Not Detected; U Benzodiazapine Screen DETECTED; U Buprenorphine Screen Not Detected; U Cannabinoids Screen Not Detected; U Cocaine Screen Not Detected; U Methadone Screen Not Detected; U Methamphetamine Screen Not Detected; U Opiates Screen Not Detected; U Oxycodone Screen Not Detected; U Phencyclidine Screen Not Detected
[2025-01-02] MEDS ORDERED: Magnesium Hydroxide Conc 10 ML UDC PO PRN (11:05)
[2025-01-02] MEDS ORDERED: Ondansetron HCl 2 MG / ML 2ML Vial IV PRN (11:05)
[2025-01-02 12:10] LABS: Anti-Xa UFH, PHA Monitoring <0.10 IU/mL; International Normalized Ratio 1.18; Prothrombin Time Results 12.5 Sec (9.7-11.5)
[2025-01-02] MEDS ORDERED: Heparin Sodium,Porcine/0.5 NS 500 ML IV SCH (12:15)
--- NOTE | 2025-01-02 13:40 | NUR ---
PT ARRIVAL TO UNIT PT ARRIVED TO UNIT VIA [facility] [place]. HE AMBULATE FROM [facility] [place] [facility] TO BED W/SBA. HE IS A&Ox4 ON RA AND ABLE TO MAKE NEEDS KNOWN. HE IS ON HEP GTT PER EMAR. OBTAINED VS, WEIGHT, AND ADMISSION HISTORY. PT DID START YELLING ABOUT THE FACT THAT HE HADN'T EATEN IN DAYS AND THAT HE WAS GOING TO ORDER FOOD WHETHER HE HAD A DIET ORDER OR NOT. I ASKED HIM TO TRY TO BE PATIENT UNTIL THE INDOOR SPORTS CENTRE MANAGER CAME TO SEE HIM, SO THEY COULD DETERMINE IF THEY WERE GOING TO DO ANYTHING THAT REQUIRED HIM TO BE NPO. HE CONTINUED TO YELL AND SAY HE WAS GOING TO HAVE FOOD DELIVERED AND HE DIDN'T CARE.
[2025-01-02 14:36] VITALS: BP 98/83
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
[2025-01-02] MEDS ORDERED: Mometasone/Formoterol MDI 100/5 mcg 13 GM INH SCH (16:15)
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
[2025-01-02] MEDS ORDERED: Empagliflozin 10 MG TAB PO SCH (17:00)
[2025-01-02] MEDS ORDERED: Spironolactone 50 MG Tab PO SCH (17:00)
[2025-01-02] MEDS ORDERED: Furosemide 10 MG/ML 4ML Vial IV SCH ×2 (18:00)
[2025-01-02] MEDS ORDERED: Atorvastatin 40 MG Tab PO SCH (21:00)
[2025-01-02] MEDS ORDERED: Sacubitril/Valsartan 24 MG-26 MG Tab PO SCH (21:00)
[2025-01-03] MEDS ORDERED: Losartan Potassium 25 MG Tab PO SCH (09:00)
[2025-01-03] MEDS ORDERED: Metoprolol Succinate 25 MG TABCR PO SCH (09:00)
[2025-01-03] MEDS ORDERED: Clopidogrel Bisulfate 75 MG Tab PO SCH (09:00)
[2025-01-03] MEDS ORDERED: Spironolactone 25 MG Tab PO SCH (09:00)
[2025-01-03] MEDS ORDERED: Aspirin 81 MG Chew PO SCH (09:00)
[2025-01-03] MEDS ORDERED: Ticagrelor 90 MG TABLET PO SCH (09:00)
[2025-01-03] MEDS ORDERED: Ticagrelor 90 MG TABLET PO ONE (10:50)
== END 2025-01-02 17:05 | disposition left against medical advice (07) | DRG 280 ==
LOC: ER 08:11 → ERHOLD 11:04 → PCU 13:40
PROVIDERS: Physician Assistant; ADMIT Internal Medicine
PROC: 5A09357 Assistance with Respiratory Ventilation, Less than 24 Consecutive Hours, Continuous Positive Airway Pressure (ICD-10-PCS; principal; 2025-01-02)
DX: I13.0 Hypertensive heart and chronic kidney disease with heart failure and stage 1 through stage 4 chronic kidney disease, or unspecified chronic kidney disease (principal); I50.23 Acute on chronic systolic (congestive) heart failure; I21.A1 Myocardial infarction type 2; J96.01 Acute respiratory failure with hypoxia; E87.6 Hypokalemia; J44.9 Chronic obstructive pulmonary disease, unspecified; Z66 Do not resuscitate; I25.5 Ischemic cardiomyopathy; F15.10 Other stimulant abuse, uncomplicated; I25.10 Atherosclerotic heart disease of native coronary artery without angina pectoris; F10.20 Alcohol dependence, uncomplicated; N18.30 Chronic kidney disease, stage 3 unspecified; E78.5 Hyperlipidemia, unspecified; Z88.5 Allergy status to narcotic agent; Z87.891 Personal history of nicotine dependence; Z95.5 Presence of coronary angioplasty implant and graft; I25.2 Old myocardial infarction; Z79.82 Long term (current) use of aspirin; Z79.02 Long term (current) use of antithrombotics/antiplatelets; Z79.51 Long term (current) use of inhaled steroids
CPT/HCPCS: 36415; 71045; 80053; 83880; 84484; 85025; 85520; 85610; 85730; 93005; 93010; 94644; 94660; 94664; 96374; 99285-25; A9270; J1644; J1938

== ENCOUNTER → 2025-06-04 | Outpatient (CLI) | payer MEDICARE ==
[2025-06-04 19:29] LABS: BASOPHILS ABSOLUTE AUTO 0.12 K/mm3 (0.00-0.23); BASOPHILS PERCENT AUTO 1 % (0-2); EOSINOPHILS ABSOLUTE AUTO 0.47 K/mm3 (0.00-0.68); EOSINOPHILS PERCENT AUTO 4 % (0-6); Hematocrit 40.2 % (37.0-53.0); Hemoglobin 13.4 g/dL (13.5-17.5); IMMATURE GRAN ABSOLUTE AUTO 0.05 K/mm3 (0.00-0.10); IMMATURE GRAN PERCENT AUTO 0 % (0-1); IMMATURE RETIC FRACTION 9.80 % (2.3-16.0); LYMPHOCYTES ABSOLUTE AUTO 1.48 K/mm3 (0.84-5.20); LYMPHOCYTES PERCENT AUTO 13 % (21-46); MONOCYTES ABSOLUTE AUTO 0.86 K/mm3 (0.16-1.47); MONOCYTES PERCENT AUTO 7 % (4-13); Mean Corpuscular HGB Conc 33.3 g/dL (31.5-36.5); Mean Corpuscular Volume 85 fL (80-100); NEUTROPHILS ABSOLUTE AUTO 8.70 K/mm3 (1.96-9.15); NEUTROPHILS PERCENT AUTO 75 % (41-73); NRBC ABSOLUTE 0.00 K/mm3 (0.00-0.02); NRBC Auto 0.0 /100 WBC (0.0-0.2); Platelet Count 518 K/mm3 (150-400); RDW Coefficient Variation 15.6 % (11.7-14.2); RDW Standard Deviation 47.5 fL (35.1-46.3); RETIC HGB EQUIVALENT 32.70 pg (28.20-36.60); RETICULOCYTE ABSOLUTE 0.0590 M/mm3 (0.0200-0.1100); RETICULOCYTE COUNT PERCENT 1.24 % (0.50-2.50)
[2025-06-04 20:22] LABS: Alanine Aminotransfer (ALT/SGP 21 U/L (12-78); Albumin, Blood 4.0 g/dL (3.4-5.0); Albumin/Globulin Ratio 0.9 (0.8-1.8); Anion Gap 12 mmol/L (3-11); Aspartate Aminotrans (AST/SGOT 16 U/L (12-37); Bilirubin, Total 0.5 mg/dL (0.1-1.0); Blood Urea Nitrogen 35 mg/dL (8-24); CHOL/HDL RATIO 3.4; CO2, Blood 25 mmol/L (21-32); Calcium, Blood 9.0 mg/dL (8.5-10.1); Chloride, Blood 98 mmol/L (98-108); Cholesterol 158 mg/dL (50-200); Creatinine, Blood 1.56 mg/dL (0.60-1.20); Ferritin, Serum 200 ng/mL (26-388); Globulin, Blood 4.4 g/dL (2.2-4.0); Glucose, Blood 113 mg/dL (70-99); HDL Cholesterol 47 mg/dL (>39); LDL/HDL RATIO 1.8; Low Density Lipoprotein Chol 83 mg/dL (0-110); Potassium, Blood 4.0 mmol/L (3.5-5.5); Sodium, Blood 131 mmol/L (136-145); Thyroid Stimulating Hormone 0.683 uIU/mL (0.360-4.800); Total Iron Binding Capacity 312 ug/dL (250-450); Total Protein, Blood 8.4 g/dL (6.4-8.2); Triglycerides 141 mg/dL (30-160); Very Low Density Lipoprot Chol 28 mg/dL (6-32)
[2025-06-04 20:24] LABS: Creatinine, Urine Random 45.6 mg/dL (27.00-270.00); Protein, Urine Random 5.6 mg/dL (0.0-11.9); Protein/Creat Ratio, Ur Random 0.1
== END ==
LOC: LAB 18:37 → LAB SHORT 18:37
PROVIDERS: Nurse Practitioner Family
DX: I10 Essential (primary) hypertension (principal); D64.9 Anemia, unspecified; Z79.899 Other long term (current) drug therapy
CPT/HCPCS: 80053; 80061; 82570; 82607; 82728; 82746; 83540; 83550; 84156; 84443; 85025; 85045